=== PATIENT | male | born 1935 | race Caucasian/White ===

== ENCOUNTER 2016-11-01 23:49 | Emergency (ER) | payer MEDICARE, OTHER ==
[~2016-11-01] VITALS: Ht 167.6 cm; Wt 76.0 kg
[~2016-11-01 23:49] MED LIST: ALPR0.5T PO; AMLO5TAB4 PO; ASPI-664 PO; DOCU-159 PO; LEVE-5 PO; LEVO88TA3 PO; LOSA100T7 PO; OMEP20CA16 PO; RANI150T5 PO; RANI150T9 PO
[2016-11-01 23:51] VITALS: Ht 167.6 cm; Wt 76.0 kg
[2016-11-01] MEDS ORDERED: SOD CHLORIDE 0.9% 500 ML IV STA (23:54)
[2016-11-02 00:22] LABS: ADD SCAN DIFF NO
[2016-11-02 00:27] LABS: BASOPHILS % 0.4 % (0.0-2.0); EOSINOPHILS # 0.3 10^3/ul (0.0-0.5); EOSINOPHILS % 2.8 % (0.0-7.0); HEMATOCRIT 45.3 % (42.0-52.0); HEMOGLOBIN 15.2 g/dl (14.0-18.0); LYMPHOCYTES # 1.3 10^3/ul (0.8-2.9); LYMPHOCYTES % 12.1 % (15.0-51.0); MEAN CORPUSCULAR HGB CONC 33.6 g/dl (32.0-37.0); MEAN CORPUSCULAR VOLUME 92.4 fl (82.0-101.0); MEAN PLATELET VOLUME 9.6 fl (7.4-10.4); MONOCYTE # 0.9 10^3/ul (0.3-0.9); MONOCYTES % 8.9 % (0.0-11.0); NEUTROPHIL # 7.8 10^3/ul (1.6-7.5); NEUTROPHILS % 75.5 % (39.0-77.0); PLATELET COUNT 227 10^3/UL (140-415); RED CELL DISTRIBUTION WIDTH 13.7 % (11.5-14.5); WHITE BLOOD COUNT 10.4 10^3/ul (4.8-10.8)
[2016-11-02 00:36] LABS: INR 0.97; PROTIME 12.9 Sec (12.2-14.2)
[2016-11-02 00:37] LABS: PARTIAL THROMBOPLASTIN TIME 28.6 Sec (25.0-35.0)
--- NOTE | 2016-11-02 00:37 | RADRPT ---
PROCEDURE: CT BRAIN WITHOUT CONTRAST CLINICAL INDICATION: 81-year-old male with headaches. TECHNIQUE: The study was performed utilizing GE Light[employer]STRAN VCT 64-slice CT scanner. Direct axial sections were obtained from the foramen magnum to the vertex without the use of intravenous contrast material. Sagittal and coronal reformations were obtained. Automated exposure control and iterativ e reconstruction techniques were utilized for this examination. The images were viewed on a PACS [place]. CTD/vol = 39.4 mGy; Total Exam DLP = 634.2 mGy-cm. COMPARISON: None. FINDINGS: There is moderate degree of diffuse cortical and central atrophy with compensatory ventricular enlar gement. There is no evidence for mass effect or midline shift. There are periventricular areas of decreased density consistent with microangiopathic ischemic changes. 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 There is no evidence for acute intra or extra-axial blood. Calcifi cations are seen within the intracranial carotid arteries bilaterally. The bony calvarium is intact. There is kzyp-gh-pkqazkrt mucosal thickening within the ethmoid air cells bilaterally. The mastoid air cells are without significant soft tissue. There is mild calcification within the ear cartilag e bilaterally. IMPRESSION: 1. Moderate diffuse atrophy. 2. Microangiopathic ischemic changes. 3. Multiple punctate extra-axial ovoid dense radiopaque foci within the inferior aspects of the primitivo ateral middle cranial and posterior fossa subarachnoid spaces. These are most suggestive of Pantopaq ue from a prior myelogram. Prior studies are not available to assess interval change. Clinical pierre elation is necessary. 4. Vascular calcifications. 5. Ugqf-py-sjocragp mucosal thickening ethmoid air cells bilaterally. .Everardo Simon MD, MD Date Time Electronically viewed and signed by .Everardo Simon MD, MD on 11/02/2016 00:37 .Damián/
[2016-11-02 00:40] LABS: CHLORIDE 103 mmol/L (97-110); SODIUM 142 mmol/L (135-144)
[2016-11-02 00:43] LABS: CREATININE 1.03 mg/dl (0.61-1.24)
--- NOTE | 2016-11-02 00:43 | RADRPT ---
PROCEDURE: XR Chest. CLINICAL INDICATION: Headache TECHNIQUE: AP Portable chest. COMPARISON: 09/05/2016 FINDINGS: The cardiomediastinal silhouette is normal. The lungs are clear. The osseous structures are unrema rkable. IMPRESSION: No acute findings. RPTAT: HIKT .Mk Amaro MD, Date Time Electronically viewed and signed by .Mk Amaro MD, on 11/02/2016 00:43 .T/
[2016-11-02 00:44] LABS: ANION GAP 15 (8-16); BLOOD UREA NITROGEN 16 mg/dl (7-20); CARBON DIOXIDE 28 mmol/L (21-31); GLUCOSE 115 mg/dl (70-220)
[2016-11-02 00:58] LABS: TROPONIN-I < 0.012 ng/ml (0.00-0.12)
--- NOTE | 2016-11-02 02:14 | ERD ---
ER Documentation Chief Complaint Date/Time DATE: 11/02/16 TIME: 02:13 Chief Complaint dry cough since last night; chronic dizziness HPI This is a 81-year-old male complains of dry cough since last night. He said he has has chronic dizziness. Denies any other current complaints. Denies any nausea vomiting fevers or chills. Denies any current issues. Cough has been nonproductive. No fevers or chills. No chest pain or shortness of breath. ROS All systems reviewed and are negative except as per history of present illness. Medications Home Meds Active Scripts Levetiracetam* (Keppra*) 500 Mg Tablet, 500 MG PO DAILY, #7 TAB Prov:LIYAH MORENO MD 08/23/16 Ranitidine Hcl* (Zantac*) 150 Mg Tablet, 150 MG PO BID Y for EPIGASTRIC PAIN, # 30 TAB Prov:TIERA ALFARO DO 08/11/16 Reported Medications Ranitidine Hcl* (Ranitidine Hcl*) 150 Mg Tablet, 150 MG PO DAILY, #30 TAB 08/11/16 Alprazolam* (Xanax*) 0.5 Mg Tab, 0.5 MG PO TID Y for ANXIETY, TAB 08/11/16 Amlodipine Besylate* (Norvasc*) 5 Mg Tablet, 5 MG PO BID, TAB 03/05/16 Aspirin* (Aspirin* EC) 81 Mg Tablet.dr, 81 MG PO DAILY, TAB 03/05/16 Omeprazole* (Omeprazole*) 20 Mg Capsule.dr, 20 MG PO BID, #60 CAP 03/05/16 Docusate Sodium* (Docusate Sodium*) 100 Mg Capsule, 100 MG PO BID, #60 CAP 01/23/16 Losartan Potassium* (Losartan Potassium*) 100 Mg Tablet, 100 MG PO DAILY, TAB 09/12/15 Levothyroxine Sodium* (Levothyroxine Sodium*) 88 Mcg Tablet, 88 MCG PO AC BREAKFAST, TAB 05/02/15 Allergies Allergies: Coded Allergies: No Known Allergies (Verified Allergy, Mild, 08/11/16) PMhx/Soc History of Surgery: Yes (multiple stents placed, thyroidectomy, spinal surgery) Anesthesia Reaction: No Hx Neurological Disorder: Yes (dizziness) Hx Respiratory Disorders: Yes (ASTHMA ) Hx Cardiac Disorders: Yes (HTN, HIGH CHOLESTEROL ) Hx Psychiatric Problems: No Hx Miscellaneous Medical Probl: Yes (LYMPHOMA ANXIETY, hypothyroidism) Hx Alcohol Use: No Hx Substance Use: No Hx Tobacco Use: Yes (quit 10 years ago) Smoking Status: Former smoker Physical Exam Vitals Vital Signs Date Time Temp Pulse Resp B/P Pulse Ox O2 Delivery O2 Flow Rate FiO2 11/01/16 23:51 97.7 78 14 133/83 97 Physical Exam Const: [] Head: Atraumatic Eyes: Normal Conjunctiva ENT: Normal External Ears, Nose and Mouth. Neck: Full range of motion..~ No meningismus. Resp: Clear to auscultation bilaterally Cardio: Regular rate and rhythm, no murmurs Abd: Soft, non tender, non distended. Normal bowel sounds Skin: No petechiae or rashes Back: No midline or flank tenderness Ext: No cyanosis, or edema Neur: Awake and alert Psych: Normal Mood and Affect Result Diagram: 11/02/16 0010 11/02/16 0010 Results 24 hrs Laboratory Tests Test 11/02/16 00:10 Activated Partial Thromboplast Time 28.6Sec Anion Gap 15 Basophils # 0.010^3/ul Basophils % 0.4% Blood Urea Nitrogen 16mg/dl Calcium Level 9.0mg/dl Carbon Dioxide Level 28mmol/L Chloride Level 103mmol/L Creatinine 1.03mg/dl Eosinophils # 0.310^3/ul Eosinophils % 2.8% Glucose Level 115mg/dl Hematocrit 45.3% Hemoglobin 15.2g/dl INR International Normalized Ratio 0.97 Lymphocytes # 1.310^3/ul Lymphocytes % 12.1% Mean Corpuscular Hemoglobin 31.0pg Mean Corpuscular Hemoglobin Concent 33.6g/dl Mean Corpuscular Volume 92.4fl Mean Platelet Volume 9.6fl Monocytes # 0.910^3/ul Monocytes % 8.9% Neutrophils # 7.810^3/ul Neutrophils % 75.5% Nucleated Red Blood Cells # 0.010^3/ul Nucleated Red Blood Cells % 0.0/100WBC Platelet Count 33244^3/UL Potassium Level 4.0mmol/L Prothrombin Time 12.9Sec Prothrombin Time Ratio 1.0 Red Blood Count 4.9010^6/ul Red Cell Distribution Width 13.7% Sodium Level 142mmol/L Troponin I < 0.012ng/ml White Blood Count 10.410^3/ul Current Medications Medications (Trade) Dose Ordered Sig/Belle Route PRN Reason Start Time Stop Time Status Last Admin Dose Admin Sodium Chloride (NS) 500 ml @ 500 mls/hr Q1H STAT IV 11/01/16 23:54 11/02/16 00:53 DC 11/02/16 01:05 Procedures/MDM EKG: Rate/Rhythm: Normal Sinus Rhythm QRS, ST, T-waves: No changes consistent w/ acute ischemia Impression: No evidence of ischemia or arrhythmia Chest X-ray 1V Interpreted by me: Soft Tissue: No acute abnormalities Bones: No acute abnormalities Mediastinum/Cardiac Silhouette/Lungs: No acute abnormalities Patient's respiratory status has stabilized while in the department and is appropriate for outpatient work up. Exam and work up not consistent w/ impending respiratory failure or cardiovascular collapse. Departure Diagnosis: Primary Impression: Cough Condition: Stable GEOVANY MCCRACKEN Nov 02, 2016 02:14
[2016-11-02] MEDS ORDERED: MECL-77 PO (02:16)
[2016-11-02] MEDS ORDERED: BENZ100C70 PO (02:35)
[2016-11-02 02:52] VITALS: BP 129/72; PULSE 68; RESP 16; TEMP 98.6
== END 2016-11-02 03:01 | disposition home or self-care (01) ==
LOC: E/R 23:49
DX: R05 Cough (principal); J45.909 Unspecified asthma, uncomplicated; I10 Essential (primary) hypertension; E03.9 Hypothyroidism, unspecified; R40.2142 Coma scale, eyes open, spontaneous, at arrival to emergency department; R40.2252 Coma scale, best verbal response, oriented, at arrival to emergency department; R40.2362 Coma scale, best motor response, obeys commands, at arrival to emergency department; Z98.61 Coronary angioplasty status; Z87.891 Personal history of nicotine dependence; Z79.82 Long term (current) use of aspirin
CPT/HCPCS: 36415; 70450; 71010; 80048; 84484; 85025; 85610; 85730; 99285; J7040

== ENCOUNTER 2016-11-07 00:33 | Emergency (ER) | payer MEDICARE, OTHER ==
[~2016-11-07] VITALS: Ht 167.6 cm; Wt 78.5 kg
[~2016-11-07 00:33] MED LIST changes: +BENZ100C70 PO; +MECL-77 PO
[2016-11-07 00:54] VITALS: Ht 167.6 cm; Wt 78.5 kg
== END 2016-11-07 02:54 | disposition left against medical advice (07) ==
LOC: E/R 00:33
DX: Z53.21 Procedure and treatment not carried out due to patient leaving prior to being seen by health care provider (principal)

== ENCOUNTER 2016-11-25 04:59 | Emergency (ER) | payer MEDICARE ==
[~2016-11-25] VITALS: Ht 170.2 cm; Wt 63.6 kg
[2016-11-25 05:01] VITALS: Ht 170.2 cm; Wt 63.6 kg
--- NOTE | 2016-11-25 05:45 | ERD ---
ER Documentation Chief Complaint Date/Time DATE: 11/25/16 TIME: 05:43 Chief Complaint c/o his b/p being elevated. anxiety HPI This is a 81-year-old male complains of blood pressure being elevated. Patient is a very anxious. Denies any fevers or chills. Denies any nausea vomiting. Denies any other current complaints. No chest pain. No other current problems ROS All systems reviewed and are negative except as per history of present illness. Medications Home Meds Active Scripts Benzonatate* (Tessalon Perle*) 100 Mg Capsule, 100 MG PO Q8H Y for COUGH, #20 CAP Prov:RICKEYGENETGEOVANY S. 11/02/16 Meclizine Hcl* (Meclizine Hcl*) 25 Mg Tablet, 25 MG PO Q8H Y for DIZZINESS, #14 TAB Prov:RICKEYGENETGEOVANY S. 11/02/16 Levetiracetam* (Keppra*) 500 Mg Tablet, 500 MG PO DAILY, #7 TAB Prov:LIYAH MORENO MD 08/23/16 Ranitidine Hcl* (Zantac*) 150 Mg Tablet, 150 MG PO BID Y for EPIGASTRIC PAIN, # 30 TAB Prov:TIERA ALFARO DO 08/11/16 Reported Medications Ranitidine Hcl* (Ranitidine Hcl*) 150 Mg Tablet, 150 MG PO DAILY, #30 TAB 08/11/16 Alprazolam* (Xanax*) 0.5 Mg Tab, 0.5 MG PO TID Y for ANXIETY, TAB 08/11/16 Amlodipine Besylate* (Norvasc*) 5 Mg Tablet, 5 MG PO BID, TAB 03/05/16 Aspirin* (Aspirin* EC) 81 Mg Tablet.dr, 81 MG PO DAILY, TAB 03/05/16 Omeprazole* (Omeprazole*) 20 Mg Capsule.dr, 20 MG PO BID, #60 CAP 03/05/16 Docusate Sodium* (Docusate Sodium*) 100 Mg Capsule, 100 MG PO BID, #60 CAP 01/23/16 Losartan Potassium* (Losartan Potassium*) 100 Mg Tablet, 100 MG PO DAILY, TAB 09/12/15 Levothyroxine Sodium* (Levothyroxine Sodium*) 88 Mcg Tablet, 88 MCG PO AC BREAKFAST, TAB 05/02/15 Allergies Allergies: Coded Allergies: No Known Allergies (Verified Allergy, Mild, 08/11/16) PMhx/Soc History of Surgery: Yes (multiple stents placed, thyroidectomy, spinal surgery) Anesthesia Reaction: No Hx Neurological Disorder: Yes (dizziness, concussion x 5 ) Hx Respiratory Disorders: Yes (ASTHMA ) Hx Cardiac Disorders: Yes (HTN, HIGH CHOLESTEROL ) Hx Psychiatric Problems: No Hx Miscellaneous Medical Probl: Yes (LYMPHOMA ANXIETY, hypothyroidism) Hx Alcohol Use: No Hx Substance Use: No Hx Tobacco Use: Yes (quit 10 years ago) Smoking Status: Former smoker Physical Exam Vitals Vital Signs Date Time Temp Pulse Resp B/P Pulse Ox O2 Delivery O2 Flow Rate FiO2 11/25/16 05:01 97.7 64 18 155/70 98 Physical Exam Const: [] Head: Atraumatic Eyes: Normal Conjunctiva ENT: Normal External Ears, Nose and Mouth. Neck: Full range of motion..~ No meningismus. Resp: Clear to auscultation bilaterally Cardio: Regular rate and rhythm, no murmurs Abd: Soft, non tender, non distended. Normal bowel sounds Skin: No petechiae or rashes Back: No midline or flank tenderness Ext: No cyanosis, or edema Neur: Awake and alert Psych: Normal Mood and Affect Procedures/MDM EKG: Rate/Rhythm: [Normal Sinus Rhythm] QRS, ST, T-waves: [No changes consistent w/ acute ischemia] Impression: [No evidence of ischemia or arrhythmia] Patient's blood pressure was elevated (>120/80) but appears stable without evidence of hypertension emergency or urgency. The patient was counseled about the risks of hypertension and urged to pursue outpatient monitoring and therapy within a week with their primary care physician. Symptomology symptoms consistent with anxiety. At this point patient stable for outpatient management. Responded well to Ativan. Will be discharged home with a course of Ativan Departure Diagnosis: Primary Impression: Anxiety Condition: Stable GEOVANY MCCRACKEN Nov 25, 2016 05:44
[2016-11-25] MEDS ORDERED: LORA1TAB PO (05:49)
[2016-11-25] MEDS ORDERED: LORAZEPAM 1 MG TAB PO ONE (06:00)
[2016-11-25 06:46] VITALS: BP 138/80; PULSE 88; RESP 16; TEMP 98.6
== END 2016-11-25 06:46 | disposition home or self-care (01) ==
LOC: E/R 04:59
DX: F41.9 Anxiety disorder, unspecified (principal); J45.909 Unspecified asthma, uncomplicated; I10 Essential (primary) hypertension; E03.9 Hypothyroidism, unspecified; R40.2142 Coma scale, eyes open, spontaneous, at arrival to emergency department; R40.2252 Coma scale, best verbal response, oriented, at arrival to emergency department; R40.2362 Coma scale, best motor response, obeys commands, at arrival to emergency department; Z85.72 Personal history of non-Hodgkin lymphomas; Z87.891 Personal history of nicotine dependence; Z79.82 Long term (current) use of aspirin
CPT/HCPCS: 36415; 93005

== ENCOUNTER 2016-11-28 19:18 | Emergency (ER) | payer MEDICARE ==
[~2016-11-28] VITALS: Ht 167.6 cm; Wt 76.0 kg
[~2016-11-28 19:18] MED LIST changes: +LORA1TAB PO
[2016-11-28 19:22] VITALS: Ht 167.6 cm; Wt 76.0 kg
[2016-11-28] MEDS ORDERED: DOCU-159 PO (19:52)
[2016-11-28] MEDS ORDERED: OMEP20CA16 PO (19:54)
[2016-11-28 20:14] LABS: ADD SCAN DIFF NO
[2016-11-28 20:16] LABS: BASOPHIL # 0.1 10^3/ul (0.0-0.1); BASOPHILS % 0.6 % (0.0-2.0); EOSINOPHILS % 0.5 % (0.0-7.0); HEMATOCRIT 42.1 % (42.0-52.0); HEMOGLOBIN 14.5 g/dl (14.0-18.0); LYMPHOCYTES # 1.7 10^3/ul (0.8-2.9); MEAN CORPUSCULAR HEMOGLOBIN 31.5 pg (29.0-33.0); MEAN CORPUSCULAR HGB CONC 34.4 g/dl (32.0-37.0); MEAN CORPUSCULAR VOLUME 91.3 fl (82.0-101.0); MEAN PLATELET VOLUME 10.2 fl (7.4-10.4); MONOCYTE # 0.7 10^3/ul (0.3-0.9); MONOCYTES % 7.9 % (0.0-11.0); NEUTROPHIL # 6.3 10^3/ul (1.6-7.5); NEUTROPHILS % 71.8 % (39.0-77.0); PLATELET COUNT 251 10^3/UL (140-415); RED BLOOD COUNT 4.61 10^6/ul (4.70-6.10); RED CELL DISTRIBUTION WIDTH 13.8 % (11.5-14.5); WHITE BLOOD COUNT 8.7 10^3/ul (4.8-10.8)
[2016-11-28 20:25] LABS: CHLORIDE 100 mmol/L (97-110)
[2016-11-28 20:26] LABS: POTASSIUM 4.2 mmol/L (3.5-5.1); SODIUM 139 mmol/L (135-144)
[2016-11-28 20:28] LABS: CREATININE 0.91 mg/dl (0.61-1.24); INR 1.06; PROTIME 13.8 Sec (12.2-14.2); PT RATIO 1.1
[2016-11-28 20:29] LABS: ANION GAP 14 (8-16); BLOOD UREA NITROGEN 17 mg/dl (7-20); CALCIUM 9.3 mg/dl (8.4-10.2); CARBON DIOXIDE 29 mmol/L (21-31); GLUCOSE 111 mg/dl (70-220)
[2016-11-28 20:44] LABS: TROPONIN-I < 0.012 ng/ml (0.00-0.12)
[2016-11-28 20:55] LABS: PARTIAL THROMBOPLASTIN TIME 28.7 Sec (25.0-35.0)
[2016-11-28 21:01] VITALS: BP 146/67; PULSE 57; RESP 18
--- NOTE | 2016-11-28 21:01 | RADRPT ---
PROCEDURE: XR Chest. CLINICAL INDICATION: Chest pain. TECHNIQUE: Portable AP upright view of the chest was obtained. COMPARISON: 11/02/2016 FINDINGS: The cardiomediastinal silhouette is within normal limits. The lungs are clear. There is no evidenc e for pleural effusion, pneumothorax or pulmonary vascular congestion. The osseous structures are i ntact with no evidence for acute abnormality. RPTAT:HJJR IMPRESSION: No evidence for acute intrathoracic pathology or change from 11/02/2016. Physician Aarti Date Time Electronically viewed and signed by Jerel Webster Physician on 11/28/2016 21:00 /
--- NOTE | 2016-11-28 21:26 | ERD ---
ER Documentation Chief Complaint Date/Time DATE: 11/28/16 TIME: 21:24 Chief Complaint dizziness, states unsure if he took wrong medication for htn, abd pain HPI This 81-year-old male presents to the emergency room for evaluation of lightheadedness. The patient states that he is unsure if he took some medication for high blood pressure. The patient states that he is not having any chest pain or palpitations or nausea or vomiting. The patient does state that he is taking hydrochlorothiazide. No aggravating or relieving factors for her symptoms. ROS All systems reviewed and are negative except as per history of present illness. Medications Home Meds Reported Medications Omeprazole* (Omeprazole*) 20 Mg Capsule.dr, 20 MG PO DAILY, #30 CAP 11/28/16 Docusate Sodium* (Docusate Sodium*) 100 Mg Capsule, 200 MG PO DAILY, #30 CAP 11/28/16 Alprazolam* (Xanax*) 0.5 Mg Tab, 0.5 MG PO TID Y for ANXIETY, TAB 08/11/16 Amlodipine Besylate* (Norvasc*) 5 Mg Tablet, 5 MG PO BID, TAB 03/05/16 Aspirin* (Aspirin* EC) 81 Mg Tablet.dr, 81 MG PO DAILY, TAB 03/05/16 Losartan Potassium* (Losartan Potassium*) 100 Mg Tablet, 100 MG PO DAILY, TAB 09/12/15 Levothyroxine Sodium* (Levothyroxine Sodium*) 88 Mcg Tablet, 88 MCG PO AC BREAKFAST, TAB 05/02/15 Discontinued Reported Medications Ranitidine Hcl* (Ranitidine Hcl*) 150 Mg Tablet, 150 MG PO DAILY, #30 TAB 08/11/16 Omeprazole* (Omeprazole*) 20 Mg Capsule.dr, 20 MG PO BID, #60 CAP 03/05/16 Docusate Sodium* (Docusate Sodium*) 100 Mg Capsule, 100 MG PO BID, #60 CAP 01/23/16 Discontinued Scripts Lorazepam* (Lorazepam*) 1 Mg Tablet, 1 MG PO Q8H Y for ANXIETY, #10 TAB Prov:GEOVANY MCCRACKEN 11/25/16 Benzonatate* (Tessalon Perle*) 100 Mg Capsule, 100 MG PO Q8H Y for COUGH, #20 CAP Prov:GEOVANY MCCRACKEN 11/02/16 Meclizine Hcl* (Meclizine Hcl*) 25 Mg Tablet, 25 MG PO Q8H Y for DIZZINESS, #14 TAB Prov:DARSHANA MCCRACKENEL Corine 11/02/16 Levetiracetam* (Keppra*) 500 Mg Tablet, 500 MG PO DAILY, #7 TAB Prov:LIYAH MORENO MD 08/23/16 Ranitidine Hcl* (Zantac*) 150 Mg Tablet, 150 MG PO BID Y for EPIGASTRIC PAIN, # 30 TAB Prov:TIERA ALFARO DO 08/11/16 Allergies Allergies: Coded Allergies: No Known Allergies (Verified Allergy, Mild, 11/28/16) PMhx/Soc History of Surgery: Yes (multiple stents placed, thyroidectomy, spinal surgery) Anesthesia Reaction: No Hx Neurological Disorder: Yes (dizziness, concussion x 5 ) Hx Respiratory Disorders: Yes (ASTHMA ) Hx Cardiac Disorders: Yes (HTN, HIGH CHOLESTEROL ) Hx Psychiatric Problems: No Hx Miscellaneous Medical Probl: Yes (LYMPHOMA ANXIETY, hypothyroidism) Hx Alcohol Use: No Hx Substance Use: No Hx Tobacco Use: Yes (quit 10 years ago) Smoking Status: Former smoker Physical Exam Vitals Vital Signs Date Time Temp Pulse Resp B/P Pulse Ox O2 Delivery O2 Flow Rate FiO2 11/28/16 21:01 57 18 146/67 100 Nasal Cannula 2.0 11/28/16 21:00 Nasal Cannula 2 11/28/16 19:22 97.7 90 20 188/90 Physical Exam INITIAL VITAL SIGNS: Reviewed by me GENERAL: The patient is well developed and appropriate for usual state of health in no apparent distress HEENT: Pupils equal, round, and reactive to light. EOMI. There is no scleral icterus. NECK: C-spine is soft and supple, there is no meningismus. There is no cervical lymphadenopathy. LUNGS: Clear to auscultation bilaterally. There are no rales, wheezes or rhonchi. HEART: Regular rate and rhythm, no murmurs, clicks, rubs or gallops. ABDOMEN: Soft, non-tender, non-distended. There are bowel sounds in all four quadrants. No rebound or guarding. EXTREMITIES: There is no peripheral cyanosis or edema. No focal swelling or erythema. NEUROLOGICAL: The patient moves all four extremities with 5/5 strength. Cranial nerves II - XII are intact. Normal gait. Alert and oriented SKIN: There is no apparent rash or petechiae. HEME/LYMPHATIC: There is no evidence of excessive bruising or lymphedema. PSYCHIATRIC: The patient does not appear anxious or depressed. Result Diagram: 11/28/16195411/28/161954 Results 24 hrs Laboratory Tests Test 11/28/16 19:55 White Blood Count 8.710^3/ul Red Blood Count 4.6110^6/ul Hemoglobin 14.5g/dl Hematocrit 42.1% Mean Corpuscular Volume 91.3fl Mean Corpuscular Hemoglobin 31.5pg Mean Corpuscular Hemoglobin Concent 34.4g/dl Red Cell Distribution Width 13.8% Platelet Count 83753^3/UL Mean Platelet Volume 10.2fl Neutrophils % 71.8% Lymphocytes % 19.0% Monocytes % 7.9% Eosinophils % 0.5% Basophils % 0.6% Nucleated Red Blood Cells % 0.0/100WBC Neutrophils # 6.310^3/ul Lymphocytes # 1.710^3/ul Monocytes # 0.710^3/ul Eosinophils # 0.010^3/ul Basophils # 0.110^3/ul Nucleated Red Blood Cells # 0.010^3/ul Prothrombin Time 13.8Sec Prothrombin Time Ratio 1.1 INR International Normalized Ratio 1.06 Activated Partial Thromboplast Time 28.7Sec Sodium Level 139mmol/L Potassium Level 4.2mmol/L Chloride Level 100mmol/L Carbon Dioxide Level 29mmol/L Anion Gap 14 Blood Urea Nitrogen 17mg/dl Creatinine 0.91mg/dl Glucose Level 111mg/dl Calcium Level 9.3mg/dl Troponin I < 0.012ng/ml Procedures/[facility] EKG: Rate/Rhythm: [Normal Sinus Rhythm] QRS, ST, T-waves: [No changes consistent w/ acute ischemia] Impression: [No evidence of ischemia or arrhythmia] Chest X-ray 1V Interpreted by me: Soft Tissue: No acute abnormalities Bones: No acute abnormalities Mediastinum/Cardiac Silhouette/Lungs: [No acute abnormalities] This 81-year-old male presents to the ER for evaluation of dizziness. When I evaluated this patient he stated that he thinks he took an extra hydrochlorothiazide. His blood pressure was stable. Lab work was obtained including an EKG which is nonischemic. Chest x-ray is within normal limits. Troponin is normal. When I reevaluated him to update him about his lab results the patient stated he is feeling much better. His blood pressure is 1 54 over 87. The patient will be discharged home at this time with instructions to return to the ER if his symptoms worsen. I advised him to be more careful in taking his medications, he clearly has his medications marked in a bag which is with him. The patient states that he is comfortable with discharge at this time. Departure Diagnosis: Primary Impression: Dizziness Condition: Stable TAJ RAO DO Nov 28, 2016 21:26
== END 2016-11-28 21:38 | disposition home or self-care (01) ==
LOC: E/R 19:18
DX: R42 Dizziness and giddiness (principal); J45.909 Unspecified asthma, uncomplicated; I10 Essential (primary) hypertension; E03.9 Hypothyroidism, unspecified; R07.9 Chest pain, unspecified; Z87.891 Personal history of nicotine dependence; Z79.82 Long term (current) use of aspirin
CPT/HCPCS: 36415; 71010; 80048; 84484; 85025; 85610; 85730; 93005

== ENCOUNTER 2017-01-08 22:44 | Emergency (ER) | payer MEDICARE ==
[~2017-01-08] VITALS: Ht 170.2 cm; Wt 74.5 kg
[~2017-01-08 22:44] MED LIST changes: -BENZ100C70 PO; -LEVE-5 PO; -LORA1TAB PO; -MECL-77 PO; -RANI150T5 PO; -RANI150T9 PO
[2017-01-08 23:41] VITALS: Ht 170.2 cm; Wt 74.5 kg
[2017-01-09 00:41] LABS: ADD SCAN DIFF NO
[2017-01-09 00:43] LABS: BASOPHILS % 0.5 % (0.0-2.0); EOSINOPHILS # 0.1 10^3/ul (0.0-0.5); EOSINOPHILS % 1.1 % (0.0-7.0); HEMATOCRIT 42.8 % (42.0-52.0); HEMOGLOBIN 14.5 g/dl (14.0-18.0); LYMPHOCYTES # 1.6 10^3/ul (0.8-2.9); LYMPHOCYTES % 20.2 % (15.0-51.0); MEAN CORPUSCULAR HEMOGLOBIN 31.3 pg (29.0-33.0); MEAN CORPUSCULAR HGB CONC 33.9 g/dl (32.0-37.0); MEAN CORPUSCULAR VOLUME 92.2 fl (82.0-101.0); MEAN PLATELET VOLUME 9.8 fl (7.4-10.4); MONOCYTE # 0.8 10^3/ul (0.3-0.9); MONOCYTES % 9.5 % (0.0-11.0); NEUTROPHIL # 5.4 10^3/ul (1.6-7.5); NEUTROPHILS % 68.4 % (39.0-77.0); PLATELET COUNT 308 10^3/UL (140-415); RED BLOOD COUNT 4.64 10^6/ul (4.70-6.10); RED CELL DISTRIBUTION WIDTH 14.3 % (11.5-14.5); WHITE BLOOD COUNT 7.9 10^3/ul (4.8-10.8)
--- NOTE | 2017-01-09 00:59 | RADRPT ---
PROCEDURE: XR Chest. CLINICAL INDICATION: Chest pain. TECHNIQUE: Single frontal chest x-ray. COMPARISON: 11/28/2016 FINDINGS: The cardiomediastinal silhouette is unremarkable. There is no congestive heart failure.. No focal i nfiltrate is seen. There is no pleural effusion. There is no pneumothorax. The osseous structures are unremarkable. IMPRESSION: 1. No active disease. RPTAT: HMVK .Leon Sepulveda MD, MD Date Time Electronically viewed and signed by .Leon Sepulveda MD, on 01/09/2017 00:59 .K/
[2017-01-09 01:02] LABS: ANION GAP 11 (8-16); BLOOD UREA NITROGEN 16 mg/dl (7-20); CALCIUM 9.2 mg/dl (8.4-10.2); CARBON DIOXIDE 29 mmol/L (21-31); CHLORIDE 101 mmol/L (97-110); CREATININE 0.84 mg/dl (0.61-1.24); GLUCOSE 107 mg/dl (70-220); INR 0.99; POTASSIUM 3.9 mmol/L (3.5-5.1); PROTIME 13.1 Sec (12.2-14.2); SODIUM 137 mmol/L (135-144)
[2017-01-09 01:03] LABS: PARTIAL THROMBOPLASTIN TIME 28.4 Sec (25.0-35.0)
[2017-01-09 01:16] LABS: TROPONIN-I < 0.012 ng/ml (0.00-0.12)
--- NOTE | 2017-01-09 01:54 | ERD ---
ER Documentation Chief Complaint Date/Time DATE: 01/09/17 TIME: 01:52 Chief Complaint dizziness,rt side abd pain radiating towards right chest HPI This is a 81-year-old male presents to the emergency room for dizziness. The patient states that he also had elevations in his blood pressure and he is checking his blood pressure with a blood pressure cuff at home. The patient states that he thinks he passed out but is not sure. He came to the emergency room for evaluation. He denies any chest pain or shortness of breath at this time ROS All systems reviewed and are negative except as per history of present illness. Medications Home Meds Reported Medications Omeprazole* (Omeprazole*) 20 Mg Capsule.dr, 20 MG PO DAILY, #30 CAP 11/28/16 Docusate Sodium* (Docusate Sodium*) 100 Mg Capsule, 200 MG PO DAILY, #30 CAP 11/28/16 Alprazolam* (Xanax*) 0.5 Mg Tab, 0.5 MG PO TID Y for ANXIETY, TAB 08/11/16 Amlodipine Besylate* (Norvasc*) 5 Mg Tablet, 5 MG PO BID, TAB 03/05/16 Aspirin* (Aspirin* EC) 81 Mg Tablet.dr, 81 MG PO DAILY, TAB 03/05/16 Losartan Potassium* (Losartan Potassium*) 100 Mg Tablet, 100 MG PO DAILY, TAB 09/12/15 Levothyroxine Sodium* (Levothyroxine Sodium*) 88 Mcg Tablet, 88 MCG PO AC BREAKFAST, TAB 05/02/15 Allergies Allergies: Coded Allergies: No Known Allergies (Verified Allergy, Mild, 11/28/16) PMhx/Soc History of Surgery: Yes (multiple stents placed, thyroidectomy, spinal surgery) Anesthesia Reaction: No Hx Neurological Disorder: Yes (dizziness, concussion x 5 ) Hx Respiratory Disorders: Yes (ASTHMA ) Hx Cardiac Disorders: Yes (HTN, HIGH CHOLESTEROL ) Hx Psychiatric Problems: No Hx Miscellaneous Medical Probl: Yes (LYMPHOMA ANXIETY, hypothyroidism) Hx Alcohol Use: No Hx Substance Use: No Hx Tobacco Use: Yes (quit 10 years ago) Smoking Status: Never smoker Physical Exam Vitals Vital Signs Date Time Temp Pulse Resp B/P Pulse Ox O2 Delivery O2 Flow Rate FiO2 01/08/17 23:41 97.2 66 18 141/84 96 Physical Exam INITIAL VITAL SIGNS: Reviewed by me GENERAL: The patient is well developed and appropriate for usual state of health in no apparent distress HEENT: Pupils equal, round, and reactive to light. EOMI. There is no scleral icterus. NECK: C-spine is soft and supple, there is no meningismus. There is no cervical lymphadenopathy. LUNGS: Clear to auscultation bilaterally. There are no rales, wheezes or rhonchi. HEART: Regular rate and rhythm, no murmurs, clicks, rubs or gallops. ABDOMEN: Soft, non-tender, non-distended. There are bowel sounds in all four quadrants. No rebound or guarding. EXTREMITIES: There is no peripheral cyanosis or edema. No focal swelling or erythema. NEUROLOGICAL: The patient moves all four extremities with 5/5 strength. Cranial nerves II - XII are intact. Normal gait. Alert and oriented SKIN: There is no apparent rash or petechiae. HEME/LYMPHATIC: There is no evidence of excessive bruising or lymphedema. PSYCHIATRIC: The patient does not appear anxious or depressed. Result Diagram: 01/09/17 0017 01/09/17 0017 Results 24 hrs Laboratory Tests Test 01/09/17 00:17 White Blood Count 7.910^3/ul Red Blood Count 4.6410^6/ul Hemoglobin 14.5g/dl Hematocrit 42.8% Mean Corpuscular Volume 92.2fl Mean Corpuscular Hemoglobin 31.3pg Mean Corpuscular Hemoglobin Concent 33.9g/dl Red Cell Distribution Width 14.3% Platelet Count 93971^3/UL Mean Platelet Volume 9.8fl Neutrophils % 68.4% Lymphocytes % 20.2% Monocytes % 9.5% Eosinophils % 1.1% Basophils % 0.5% Nucleated Red Blood Cells % 0.0/100WBC Neutrophils # 5.410^3/ul Lymphocytes # 1.610^3/ul Monocytes # 0.810^3/ul Eosinophils # 0.110^3/ul Basophils # 0.010^3/ul Nucleated Red Blood Cells # 0.010^3/ul Prothrombin Time 13.1Sec Prothrombin Time Ratio 1.0 INR International Normalized Ratio 0.99 Activated Partial Thromboplast Time 28.4Sec Sodium Level 137mmol/L Potassium Level 3.9mmol/L Chloride Level 101mmol/L Carbon Dioxide Level 29mmol/L Anion Gap 11 Blood Urea Nitrogen 16mg/dl Creatinine 0.84mg/dl Glucose Level 107mg/dl Calcium Level 9.2mg/dl Troponin I < 0.012ng/ml Procedures/MDM EKG: Rate/Rhythm: [Normal Sinus Rhythm] QRS, ST, T-waves: [No changes consistent w/ acute ischemia] Impression: [No evidence of ischemia or arrhythmia] Chest X-ray 1V Interpreted by me: Soft Tissue: No acute abnormalities Bones: No acute abnormalities Mediastinum/Cardiac Silhouette/Lungs: [No acute abnormalities] This 81-year-old male presents to the emergency room for evaluation of dizziness , and a possible syncopal episode. This patient is not getting a detailed history and it is uncertain of whether this patient lost consciousness or not at all. 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 Lab work was obtained in the emergency room. This patient is hemodynamically stable, negative troponin, normal sinus rhythm on EKG. Chest x-ray is also clear. Pulmonary evaluation this patient states is feeling much better and will be discharged home at this time with instructions to return to the emergency room if he develops any dizziness or chest pain or syncope. Departure Diagnosis: Primary Impression: Dizziness Condition: Stable MAIRATAJ KERR January 09, 2017 01:54
[2017-01-09 02:03] VITALS: BP 154/86; PULSE 78; RESP 18
== END 2017-01-09 02:14 | disposition home or self-care (01) ==
LOC: E/R 22:44
DX: R42 Dizziness and giddiness (principal); I10 Essential (primary) hypertension; J45.909 Unspecified asthma, uncomplicated; R07.9 Chest pain, unspecified; Z87.891 Personal history of nicotine dependence
CPT/HCPCS: 36415; 71010; 80048; 84484; 85025; 85610; 85730; 93005

== ENCOUNTER 2017-01-09 04:08 | Emergency (ER) | payer MEDICARE ==
[~2017-01-09] VITALS: Ht 170.2 cm; Wt 74.5 kg
[2017-01-09 04:16] VITALS: Ht 170.2 cm; Wt 74.5 kg
== END 2017-01-09 05:22 | disposition left against medical advice (07) ==
LOC: E/R 04:08
DX: Z53.21 Procedure and treatment not carried out due to patient leaving prior to being seen by health care provider (principal)

== ENCOUNTER 2017-01-16 04:10 | Emergency (ER) | payer MEDICARE, OTHER ==
[~2017-01-16] VITALS: Ht 167.6 cm; Wt 71.0 kg
[2017-01-16 04:17] VITALS: Ht 167.6 cm; Wt 71.0 kg
--- NOTE | 2017-01-16 04:45 | ERA ---
ER Documentation Chief Complaint Date/Time DATE: 01/16/17 TIME: 04:44 Chief Complaint High blood pressure HPI The patient is a 81-year-old male, presenting to the ER because of anxiety, high blood pressure. He did not want to take his high blood pressure because he is afraid it may drop too low. He has presented to the ER multiple times for similar symptom. He is very talkative and argumentative in the ER. He denies headache, neck pain, chest pain, dizziness, dyspnea, abdominal pain. He denies smoking or drinking Past medical history: Asthma, hypertension, dyslipidemia, anxiety, hypothyroidism, CAD ROS All systems reviewed and are negative except as per history of present illness. Medications Home Meds Reported Medications Omeprazole* (Omeprazole*) 20 Mg Capsule.dr, 20 MG PO DAILY, #30 CAP 11/28/16 Docusate Sodium* (Docusate Sodium*) 100 Mg Capsule, 200 MG PO DAILY, #30 CAP 11/28/16 Alprazolam* (Xanax*) 0.5 Mg Tab, 0.5 MG PO TID Y for ANXIETY, TAB 08/11/16 Amlodipine Besylate* (Norvasc*) 5 Mg Tablet, 5 MG PO BID, TAB 03/05/16 Aspirin* (Aspirin* EC) 81 Mg Tablet.dr, 81 MG PO DAILY, TAB 03/05/16 Losartan Potassium* (Losartan Potassium*) 100 Mg Tablet, 100 MG PO DAILY, TAB 09/12/15 Levothyroxine Sodium* (Levothyroxine Sodium*) 88 Mcg Tablet, 88 MCG PO AC BREAKFAST, TAB 05/02/15 Allergies Allergies: Coded Allergies: No Known Allergies (Verified Allergy, Mild, 11/28/16) PMhx/Soc History of Surgery: Yes (multiple stents placed, thyroidectomy, spinal surgery) Anesthesia Reaction: No Hx Neurological Disorder: Yes (dizziness, concussion x 5 ) Hx Respiratory Disorders: Yes (ASTHMA ) Hx Cardiac Disorders: Yes (HTN, HIGH CHOLESTEROL ) Hx Psychiatric Problems: No Hx Miscellaneous Medical Probl: Yes (LYMPHOMA ANXIETY, hypothyroidism) Hx Alcohol Use: No Hx Substance Use: No Hx Tobacco Use: Yes (quit 10 years ago) Physical Exam Vitals Vital Signs Date Time Temp Pulse Resp B/P Pulse Ox O2 Delivery O2 Flow Rate FiO2 01/16/17 05:09 78 21 154/94 99 Room Air 01/16/17 04:17 98.3 100 20 206/93 98 Physical Exam Const: No acute distress. Very anxious Head: Atraumatic. Eyes: Normal Conjunctiva. ENT: Normal External Ears, Nose and Mouth. Neck: Full range of motion. No meningismus. Resp: Clear to auscultation bilaterally. Cardio: Regular rate and rhythm, no murmurs. Abd: Soft, non distended, normal bowel sounds, non tender. Skin: No petechiae or rashes. Back: No midline or flank tenderness. Ext: No cyanosis, or edema. Neur: Awake and alert. No focal deficit Psych: Normal Mood and Affect. Results 24 hrs Current Medications Medications (Trade) Dose Ordered Sig/Belle Route PRN Reason Start Time Stop Time Status Last Admin Dose Admin Lorazepam (Ativan) 0.5 mg ONCE ONCE PO 01/16/17 05:00 01/16/17 05:01 DC Procedures/MDM MEDICAL MAKING DECISION: The patient is a 72-year-old male, presenting to the ER because of acute anxiety, acute excellent hypertension. He was treated with Ativan 0.5 mg for acute anxiety with good response. His blood pressure improved without any treatment to 154/94. He is stable for outpatient follow-up Departure Diagnosis: Primary Impression: Anxiety attack Additional Impression: Accelerated hypertension Condition: Good Comments I discussed the findings with the patient. I advised the patient to follow-up with the primary physician in about 1-2 days, sooner if needed and return if any concern. REGINALD LE MD January 16, 2017 04:45
[2017-01-16] MEDS ORDERED: LORAZEPAM 0.5 MG TAB PO ONE (05:00)
[2017-01-16 05:09] VITALS: BP 154/94; PULSE 78; RESP 21
== END 2017-01-16 05:09 | disposition home or self-care (01) ==
LOC: E/R 04:10
DX: F41.9 Anxiety disorder, unspecified (principal); J45.909 Unspecified asthma, uncomplicated; E03.9 Hypothyroidism, unspecified; I25.10 Atherosclerotic heart disease of native coronary artery without angina pectoris; Z79.82 Long term (current) use of aspirin; Z87.891 Personal history of nicotine dependence
CPT/HCPCS: 99283

== ENCOUNTER 2017-01-22 01:35 | Emergency (ER) | payer MEDICARE, OTHER ==
[~2017-01-22] VITALS: Wt 72.5 kg
[2017-01-22] MEDS ORDERED: SOD CHLORIDE 0.9% 1,000 ML IV ONE (02:30)
[2017-01-22] MEDS ORDERED: RANI-347 PO (02:47)
[2017-01-22] MEDS ORDERED: POLY17PO3 PO (02:47)
[2017-01-22 03:11] LABS: ADD SCAN DIFF NO
[2017-01-22 03:12] LABS: BASOPHIL # 0.1 10^3/ul (0.0-0.1); BASOPHILS % 0.7 % (0.0-2.0); EOSINOPHILS # 0.1 10^3/ul (0.0-0.5); EOSINOPHILS % 1.3 % (0.0-7.0); HEMATOCRIT 40.7 % (42.0-52.0); HEMOGLOBIN 13.5 g/dl (14.0-18.0); LYMPHOCYTES # 1.5 10^3/ul (0.8-2.9); LYMPHOCYTES % 17.6 % (15.0-51.0); MEAN CORPUSCULAR HEMOGLOBIN 30.9 pg (29.0-33.0); MEAN CORPUSCULAR HGB CONC 33.2 g/dl (32.0-37.0); MEAN CORPUSCULAR VOLUME 93.1 fl (82.0-101.0); MEAN PLATELET VOLUME 9.8 fl (7.4-10.4); MONOCYTE # 0.9 10^3/ul (0.3-0.9); MONOCYTES % 10.8 % (0.0-11.0); NEUTROPHIL # 5.9 10^3/ul (1.6-7.5); NEUTROPHILS % 69.2 % (39.0-77.0); PLATELET COUNT 223 10^3/UL (140-415); RED BLOOD COUNT 4.37 10^6/ul (4.70-6.10); RED CELL DISTRIBUTION WIDTH 14.7 % (11.5-14.5); WHITE BLOOD COUNT 8.5 10^3/ul (4.8-10.8)
--- NOTE | 2017-01-22 03:16 | RADRPT ---
PROCEDURE: CT Abdomen and pelvis without contrast. CLINICAL INDICATION: Abdominal pain. TECHNIQUE: CT scan of the abdomen and pelvis was performed on a multi-detector high-resolution CT scanner. Contiguous axial images were obtained from the lung bases to the ischial tuberosities wit hout intravenous contrast. Coronal and sagittal reformatted images were also obtained. Images were reviewed on the PACS workstation. One or more of the following dose reduction techniques were used: - Automated exposure control. - Adjustment of the mA and/or kV according to patient size. - Use of iterative reconstruction technique. Exam CTD/vol = 9.33 mGy. Total exam DLP = 587.30 mGy-cm. COMPARISON: 09/09/2015. FINDINGS: Evaluation of the lung bases demonstrates minimal bibasilar atelectasis. Abdomen: The liver is normal in size. There is no focal mass or dilatation of the biliary tree. T he gallbladder is not distended. The spleen is normal in size and contains a calcified structure me asuring 2.6 x 2.7 cm. The pancreas and bilateral adrenal glands are within normal limits. Bilatera l kidneys are normal in size with a small cyst within the mid left kidney. There is a calculus with in the mid left kidney measuring 6 x 4 mm. There is no radiopaque ureteral calculus identified. Th ere is no hydronephrosis or hydroureter. There is no retroperitoneal adenopathy. The abdominal aor ta is of normal caliber with scattered atherosclerotic calcifications. There is moderate retained stool within the colon. There is no bowel obstruction or free air. A no rmal appendix is identified. There is colonic diverticulosis without evidence of diverticulitis. T here is no ascites. Pelvis: The bladder is unremarkable. The prostate is mildly enlarged. There is no significant pel adriel adenopathy or free fluid. Evaluation of the osseous structures demonstrates no suspicious lytic or blastic lesion. IMPRESSION: No acute abnormality identified within the abdomen and pelvis. Colonic diverticulosis without evidence of diverticulitis. Moderate retained stool within the colon. Nonobstructing left renal calculus. Dystrophic splenic calcification suggestive of old infection or injury, unchanged. Vascular calcifications reflective of atherosclerosis. Mildly enlarged prostate. .Dontae Paz MD, MD Date Time Electronically viewed and signed by .Dontae Paz MD, MD on 01/22/2017 03:16 .T/
[2017-01-22 03:20] LABS: ADD UMIC NO; URINE BILIRUBIN (Dip) NEGATIVE (NEGATIVE); URINE BLOOD (Dip) NEGATIVE (NEGATIVE); URINE COLOR LT. YELLOW (YELLOW); URINE GLUCOSE (Dip) NEGATIVE (NEGATIVE); URINE KETONES (Dip) NEGATIVE (NEGATIVE); URINE LEUKOCYTE ESTERASE (Dip) NEGATIVE (NEGATIVE); URINE NITRITE (Dip) NEGATIVE (NEGATIVE); URINE TOTAL PROTEIN (Dip) NEGATIVE (NEGATIVE); URINE UROBILINOGEN (Dip) 0.2 E.U./dL (0.1-1.0)
[2017-01-22 03:28] LABS: ALBUMIN 4.2 g/dl (3.3-4.9)
[2017-01-22 03:29] LABS: POTASSIUM 4.3 mmol/L (3.5-5.1)
[2017-01-22 03:31] LABS: BILIRUBIN,INDIRECT 0.3 mg/dl (0-1.1); BILIRUBIN,TOTAL 0.3 mg/dl (0.2-1.3); CREATININE 0.91 mg/dl (0.61-1.24)
[2017-01-22 03:32] LABS: ALBUMIN/GLOBULIN RATIO 1.35; CALCIUM 8.7 mg/dl (8.4-10.2); TOTAL PROTEIN 7.3 g/dl (6.1-8.1)
[2017-01-22 05:00] VITALS: BP 138/78; PULSE 92; RESP 20
[2017-01-22] MEDS ORDERED: POLY17PO6 PO (05:32)
[2017-01-22] MEDS ORDERED: NAPR-688 PO (05:32)
[2017-01-22] MEDS ORDERED: MAGN296S40 PO (05:32)
--- NOTE | 2017-01-22 05:39 | ERD ---
ER Documentation Chief Complaint Date/Time DATE: 01/22/17 TIME: 05:36 Chief Complaint Urinary problem. Anxiety HPI 81-year-old male comes to the emergency room for abdominal pain and difficulty having a bowel movement. He says he feels like there is a not in his stomach in the mid left abdomen. He denies any fevers or chills. Denies chest pain shortness of breath. I had seen him on a prior visit where he said that recently comes to the emergency room is because he does not like to be around his . He states that this time that is not the case. He has no nausea or vomiting. ROS All systems reviewed and are negative except as per history of present illness. Medications Home Meds Active Scripts Naproxen* (Naproxen*) 500 Mg Tablet, 375 MG PO BID Y for PAIN, #14 TAB Prov:TIERA ALFARO DO 01/22/17 Magnesium Citrate* (Magnesium Citrate*) 296 Ml Solution, 296 ML PO ONCE, #1 BOTTLE Prov:TIERA ALFARO DO 01/22/17 Polyethylene Glycol* (Miralax*) 17 Gm Powd.pack, 17 GM PO DAILY, #7 Prov:TIERA ALFARO DO 01/22/17 Reported Medications Ranitidine Hcl* (Ranitidine Hcl*) 75 Mg Tablet, 75 MG PO BID Y for HEARTBURN, # 60 TAB 01/22/17 Polyethylene Glycol* (Polyethylene Glycol*) 17 Gm Powd.pack, 8.5 GM PO DAILY, # 30 PACKET 01/22/17 Omeprazole* (Omeprazole*) 20 Mg Capsule.dr, 20 MG PO DAILY, #30 CAP 11/28/16 Docusate Sodium* (Docusate Sodium*) 100 Mg Capsule, 200 MG PO DAILY, #30 CAP 11/28/16 Alprazolam* (Xanax*) 0.5 Mg Tab, 0.5 MG PO TID Y for ANXIETY, TAB 08/11/16 Amlodipine Besylate* (Norvasc*) 5 Mg Tablet, 5 MG PO BID, TAB 03/05/16 Aspirin* (Aspirin* EC) 81 Mg Tablet.dr, 81 MG PO DAILY, TAB 03/05/16 Losartan Potassium* (Losartan Potassium*) 100 Mg Tablet, 100 MG PO DAILY, TAB 09/12/15 Levothyroxine Sodium* (Levothyroxine Sodium*) 88 Mcg Tablet, 88 MCG PO AC BREAKFAST, TAB 05/02/15 Allergies Allergies: Coded Allergies: No Known Allergies (Verified Allergy, Mild, 11/28/16) PMhx/Soc History of Surgery: Yes (multiple stents placed, thyroidectomy, spinal surgery) Anesthesia Reaction: No Hx Neurological Disorder: Yes (dizziness, concussion x 5 ) Hx Respiratory Disorders: Yes (ASTHMA ) Hx Cardiac Disorders: Yes (HTN, HIGH CHOLESTEROL ) Hx Psychiatric Problems: No Hx Miscellaneous Medical Probl: Yes (LYMPHOMA ANXIETY, hypothyroidism) Hx Alcohol Use: No Hx Substance Use: No Hx Tobacco Use: No Smoking Status: Never smoker Physical Exam Vitals Vital Signs Date Time Temp Pulse Resp B/P Pulse Ox O2 Delivery O2 Flow Rate FiO2 01/22/17 01:42 97.6 86 20 172/81 97 Physical Exam Const: [] Head: Atraumatic Eyes: Normal Conjunctiva ENT: Normal External Ears, Nose and Mouth. Neck: Full range of motion..~ No meningismus. Resp: Clear to auscultation bilaterally Cardio: Regular rate and rhythm, no murmurs Abd: Soft, non tender, non distended. Normal bowel sounds Skin: No petechiae or rashes Back: No midline or flank tenderness Ext: No cyanosis, or edema Neur: Awake and alert Psych: Normal Mood and Affect Result Diagram: 01/22/17 0200 01/22/17 0200 Results 24 hrs Laboratory Tests Test 01/22/17 02:00 White Blood Count 8.510^3/ul Red Blood Count 4.3710^6/ul Hemoglobin 13.5g/dl Hematocrit 40.7% Mean Corpuscular Volume 93.1fl Mean Corpuscular Hemoglobin 30.9pg Mean Corpuscular Hemoglobin Concent 33.2g/dl Red Cell Distribution Width 14.7% Platelet Count 19500^3/UL Mean Platelet Volume 9.8fl Neutrophils % 69.2% Lymphocytes % 17.6% Monocytes % 10.8% Eosinophils % 1.3% Basophils % 0.7% Nucleated Red Blood Cells % 0.0/100WBC Neutrophils # 5.910^3/ul Lymphocytes # 1.510^3/ul Monocytes # 0.910^3/ul Eosinophils # 0.110^3/ul Basophils # 0.110^3/ul Nucleated Red Blood Cells # 0.010^3/ul Urine Color LT. YELLOW Urine Clarity CLEAR Urine pH 6.0 Urine Specific [place] 1.025 Urine Ketones NEGATIVE Urine Nitrite NEGATIVE Urine Bilirubin NEGATIVE Urine Urobilinogen 0.2 E.U./dL Urine Leukocyte Esterase NEGATIVE Urine Hemoglobin NEGATIVE Urine Glucose NEGATIVE% Urine Total Protein NEGATIVE Sodium Level 142mmol/L Potassium Level 4.3mmol/L Chloride Level 102mmol/L Carbon Dioxide Level 26mmol/L Anion Gap 18 Blood Urea Nitrogen 26mg/dl Creatinine 0.91mg/dl Glucose Level 104mg/dl Calcium Level 8.7mg/dl Total Bilirubin 0.3mg/dl Direct Bilirubin 0.00mg/dl Indirect Bilirubin 0.3mg/dl Aspartate Amino Transf (AST/SGOT) 28IU/L Alanine Aminotransferase (ALT/SGPT) 28IU/L Alkaline Phosphatase 77IU/L Total Protein 7.3g/dl Albumin 4.2g/dl Globulin 3.10g/dl Albumin/Globulin Ratio 1.35 Lipase 113U/L Current Medications Medications (Trade) Dose Ordered Sig/Belle Route PRN Reason Start Time Stop Time Status Last Admin Dose Admin Sodium Chloride (NS) 1,000 ml @ 1,000 mls/hr Q1H ONCE IV 01/22/17 02:30 01/22/17 03:29 DC 01/22/17 03:38 Procedures/MDM Constipation and elderly male. Complete workup was performed secondary to the patient's age and complaints in spite of the fact that he comes this emergency room frequently and is aware to find any acute pathology. He does have retained stool on his CAT scan. This is consistent with the symptoms he was complaining of. He has no signs of dehydration. I doubt serious bacterial infection. No signs of infection currently. I doubt any surgical abdominal emergency. He was hydrated with a liter of normal saline. I am going to discharge him with MiraLAX, magnesium citrate and naproxen for pain at a lower dose. Return precautions to the ER and primary care follow-up in 2-[address] abdomen pelvis interpretation: Moderate retained stool throughout colon. I see no other acute process. I see no obstruction, no free air, no abnormal fat stranding, no fractures Departure Diagnosis: Primary Impression: Abdominal pain Additional Impression: Constipation Condition: Stable Patient Instructions: Abdominal Pain, Constipation (Child) Additional Instructions: Call your primary care doctor TOMORROW for an appointment during the next 2-3 days.See the doctor sooner or return here if your condition worsens before your appointment time. TIERA ALFARO DO January 22, 2017 05:39
== END 2017-01-22 06:00 | disposition home or self-care (01) ==
LOC: E/R 01:35
DX: R10.9 Unspecified abdominal pain (principal); K59.00 Constipation, unspecified; J45.909 Unspecified asthma, uncomplicated; I10 Essential (primary) hypertension; E03.9 Hypothyroidism, unspecified; Z79.82 Long term (current) use of aspirin; Z98.61 Coronary angioplasty status
CPT/HCPCS: 36415; 74176; 80053; 81003; 83690; 85025; 99285; J7030

== ENCOUNTER 2017-01-28 02:43 | Emergency (ER) | payer MEDICARE, OTHER ==
[~2017-01-28] VITALS: Ht 167.6 cm; Wt 74.0 kg
[~2017-01-28 02:43] MED LIST changes: +MAGN296S40 PO; +NAPR-688 PO; +POLY17PO3 PO; +POLY17PO6 PO; +RANI-347 PO
[2017-01-28 02:48] VITALS: Ht 167.6 cm; Wt 74.0 kg
[2017-01-28] MEDS ORDERED: NICARDipine HCL 30 MG CAPSULE PO ONE (03:30)
[2017-01-28 03:57] VITALS: BP 112/67; PULSE 67; RESP 16
[2017-01-28] MEDS ORDERED: AMLODIPINE 5 MG TAB PO ONE (04:00)
--- NOTE | 2017-01-28 04:09 | ERD ---
ER Documentation Chief Complaint Date/Time DATE: 01/28/17 TIME: 04:05 Chief Complaint hypertension. hx- htn taking bp meds HPI This is a 81-year-old male with a history of hypertension who supposed to undergo a cardiac cath tomorrow morning. The patient is concerned his blood pressure is too high. He took half of his 10 mg Norvasc tablet this evening. He is here because he wants us to get his blood pressure lower. Is having no chest pain headache dizziness shortness of breath or any symptoms whatsoever. He says he is just here for blood pressure control only. He says he wants us to give him the clearance to take his other half of his Norvasc ROS All systems reviewed and are negative except as per history of present illness. Medications Home Meds Active Scripts Naproxen* (Naproxen*) 500 Mg Tablet, 375 MG PO BID Y for PAIN, #14 TAB Prov:TIERA ALFARO DO 01/22/17 Magnesium Citrate* (Magnesium Citrate*) 296 Ml Solution, 296 ML PO ONCE, #1 BOTTLE Prov:TIERA ALFARO DO 01/22/17 Polyethylene Glycol* (Miralax*) 17 Gm Powd.pack, 17 GM PO DAILY, #7 Prov:TIERA ALFARO DO 01/22/17 Reported Medications Ranitidine Hcl* (Ranitidine Hcl*) 75 Mg Tablet, 75 MG PO BID Y for HEARTBURN, # 60 TAB 01/22/17 Polyethylene Glycol* (Polyethylene Glycol*) 17 Gm Powd.pack, 8.5 GM PO DAILY, # 30 PACKET 01/22/17 Omeprazole* (Omeprazole*) 20 Mg Capsule.dr, 20 MG PO DAILY, #30 CAP 11/28/16 Docusate Sodium* (Docusate Sodium*) 100 Mg Capsule, 200 MG PO DAILY, #30 CAP 11/28/16 Alprazolam* (Xanax*) 0.5 Mg Tab, 0.5 MG PO TID Y for ANXIETY, TAB 08/11/16 Amlodipine Besylate* (Norvasc*) 5 Mg Tablet, 5 MG PO BID, TAB 03/05/16 Aspirin* (Aspirin* EC) 81 Mg Tablet., 81 MG PO DAILY, TAB 03/05/16 Losartan Potassium* (Losartan Potassium*) 100 Mg Tablet, 100 MG PO DAILY, TAB 09/12/15 Levothyroxine Sodium* (Levothyroxine Sodium*) 88 Mcg Tablet, 88 MCG PO AC BREAKFAST, TAB 05/02/15 Allergies Allergies: Coded Allergies: No Known Allergies (Unverified Allergy, Mild, 01/28/17) PMhx/Soc History of Surgery: Yes (multiple stents placed, thyroidectomy, spinal surgery) Anesthesia Reaction: No Hx Neurological Disorder: Yes (dizziness, concussion x 5 ) Hx Respiratory Disorders: Yes (ASTHMA ) Hx Cardiac Disorders: Yes (HTN, HIGH CHOLESTEROL ) Hx Psychiatric Problems: No Hx Miscellaneous Medical Probl: Yes (LYMPHOMA ANXIETY, hypothyroidism) Hx Alcohol Use: No Hx Substance Use: No Hx Tobacco Use: No FmHx Family History: No coronary disease Physical Exam Vitals Vital Signs Date Time Temp Pulse Resp B/P Pulse Ox O2 Delivery O2 Flow Rate FiO2 01/28/17 03:57 67 16 112/67 98 Room Air 01/28/17 03:23 68 16 154/79 98 Room Air 01/28/17 02:48 97.7 66 20 190/86 99 Physical Exam Const: Well-developed, well-nourished Head: Atraumatic, normocephalic Eyes: Normal Conjunctiva, PERRLA, EOMI, normal sclera, no nystagmus ENT: Normal External Ears, Nose and Mouth, moist mucus membranes. Neck: Full range of motion. No meningismus, no lymphadenopathy. Resp: Clear to auscultation bilaterally, no wheezing, rhonchi, rales Cardio: Regular rate and rhythm, no murmurs, S1 S2 present Abd: Soft, non tender x 4, non distended. Normal bowel sounds, no guarding or rebound, no pulsitile abdominal masses or bruits Skin: No petechiae or rashes, no ecchymosis , no maculopapular rash Back: No midline or flank tenderness Ext: No cyanosis, or edema, FROM x 4, normal inspection, neurovascularly intact x 4 Neur: Awake and alert, STR 5/5 x 4, sensation intact x 4, no focal findings, cerebellum intact Psych: Normal Mood and Affect Results 24 hrs Current Medications Medications (Trade) Dose Ordered Sig/Belle Route PRN Reason Start Time Stop Time Status Last Admin Dose Admin Nicardipine HCl (Cardene) 30 mg ONCE ONCE PO 01/28/17 03:30 01/28/17 03:31 Cancel Amlodipine Besylate (Norvasc) 5 mg ONCE ONCE PO 01/28/17 04:00 01/28/17 04:01 DC Procedures/MDM Patient's blood pressure is gradually declining on its own. Current blood pressure is 112/67. Will discharge home Departure Diagnosis: Primary Impression: Hypertension Hypertension type: essential hypertension Qualified Code: I10 - Essential hypertension Condition: Stable Patient Instructions: High Blood Pressure (Hypertension) Referrals: YARIEL LUNA MD (PCP) FUNMILAYO FIGUEROA DO January 28, 2017 04:09
== END 2017-01-28 04:33 | disposition home or self-care (01) ==
LOC: E/R 02:43
DX: I10 Essential (primary) hypertension (principal); J45.909 Unspecified asthma, uncomplicated; E03.9 Hypothyroidism, unspecified; Z98.61 Coronary angioplasty status; Z79.82 Long term (current) use of aspirin
CPT/HCPCS: 99282

== ENCOUNTER 2017-01-30 13:21 | Emergency (ER) | payer MEDICARE, OTHER ==
[~2017-01-30] VITALS: Ht 167.6 cm; Wt 72.5 kg
[2017-01-30 13:31] VITALS: Ht 167.6 cm; Wt 72.5 kg
--- NOTE | 2017-01-30 15:05 | ERD ---
ER Documentation Chief Complaint Date/Time DATE: 01/30/17 TIME: 1447 Chief Complaint dizziness, high blood pressure; HPI 81-year-old male presents the emergency department complaining of "my blood pressure is high " Patient has been evaluated multiple times for similar type complaints. Most recently, he had normal lab tests and was referred back to his primary care doctor. He underwent a nuclear stress test yesterday that apparently did not indicate significant cardiac disease. Today, patient presents after noticing that his blood pressure was high at home machine. Patient denies chest pain, shortness of breath, headache, focal weakness or numbness. ROS All systems reviewed and are negative except as per history of present illness. Medications Home Meds Active Scripts Naproxen* (Naproxen*) 500 Mg Tablet, 375 MG PO BID Y for PAIN, #14 TAB Prov:TIERA ALFARO DO 01/22/17 Magnesium Citrate* (Magnesium Citrate*) 296 Ml Solution, 296 ML PO ONCE, #1 BOTTLE Prov:TIERA ALFARO DO 01/22/17 Polyethylene Glycol* (Miralax*) 17 Gm Powd.pack, 17 GM PO DAILY, #7 Prov:TIERA ALFARO DO 01/22/17 Reported Medications Ranitidine Hcl* (Ranitidine Hcl*) 75 Mg Tablet, 75 MG PO BID Y for HEARTBURN, # 60 TAB 01/22/17 Polyethylene Glycol* (Polyethylene Glycol*) 17 Gm Powd.pack, 8.5 GM PO DAILY, # 30 PACKET 01/22/17 Omeprazole* (Omeprazole*) 20 Mg Capsule.dr, 20 MG PO DAILY, #30 CAP 11/28/16 Docusate Sodium* (Docusate Sodium*) 100 Mg Capsule, 200 MG PO DAILY, #30 CAP 11/28/16 Alprazolam* (Xanax*) 0.5 Mg Tab, 0.5 MG PO TID Y for ANXIETY, TAB 08/11/16 Amlodipine Besylate* (Norvasc*) 5 Mg Tablet, 5 MG PO BID, TAB 03/05/16 Aspirin* (Aspirin* EC) 81 Mg Tablet.dr, 81 MG PO DAILY, TAB 03/05/16 Losartan Potassium* (Losartan Potassium*) 100 Mg Tablet, 100 MG PO DAILY, TAB 09/12/15 Levothyroxine Sodium* (Levothyroxine Sodium*) 88 Mcg Tablet, 88 MCG PO AC BREAKFAST, TAB 05/02/15 Allergies Allergies: Coded Allergies: No Known Allergies (Unverified Allergy, Mild, 01/28/17) PMhx/Soc History of Surgery: Yes (multiple stents placed, thyroidectomy, spinal surgery) Anesthesia Reaction: No Hx Neurological Disorder: Yes (dizziness, concussion x 5 ) Hx Respiratory Disorders: Yes (ASTHMA ) Hx Cardiac Disorders: Yes (HTN, HIGH CHOLESTEROL ) Hx Psychiatric Problems: No Hx Miscellaneous Medical Probl: Yes (LYMPHOMA ANXIETY, hypothyroidism) Hx Alcohol Use: No Hx Substance Use: No Hx Tobacco Use: No FmHx Noncontributory for chief complaint Physical Exam Vitals Vital Signs Date Time Temp Pulse Resp B/P Pulse Ox O2 Delivery O2 Flow Rate FiO2 01/30/17 14:34 151/74 01/30/17 13:31 98.6 88 18 207/93 95 Physical Exam GENERAL: The patient is well developed and appropriate for usual state of health in no apparent distress HEENT: Pupils equal, round, and reactive to light. EOMI. There is no scleral icterus. NECK: C-spine is soft and supple, there is no meningismus. There is no cervical lymphadenopathy. LUNGS: Clear to auscultation bilaterally. There are no rales, wheezes or rhonchi. HEART: Regular rate and rhythm, no murmurs, clicks, rubs or gallops. ABDOMEN: Soft, non-tender, non-distended. There are bowel sounds in all four quadrants. No rebound or guarding. EXTREMITIES: There is no peripheral cyanosis or edema. No focal swelling or erythema. NEURO: The patient moves all four extremities with 5/5 strength. Cranial nerves II - XII are intact. Normal gait. Alert and oriented SKIN: There is no apparent rash or petechiae. HEME/LYMPHATIC: There is no evidence of excessive bruising or lymphedema. PSYCHIATRIC: Patient appears anxious but with normal insight and judgment and no suicidal thoughts. Procedures/MDM Patient was taken to a room, seen and examined Medical decision makin-year-old male with multiple recurrent visits for hypertension once again presents for hypertension. Although he is hypertensive , he has no evidence of hypertensive emergency at this time. He has just recently had blood tests performed as well as noninvasive stress testing. Patient has been reassured, appears clinically well and now appears appropriate for outpatient care. Departure Diagnosis: Primary Impression: Hypertension Additional Impression: Benign labile hypertension Condition: Stable Patient Instructions: High Blood Pressure (Hypertension) Referrals: YARIEL LUNA MD (PCP) Additional Instructions: Continue all your medications for blood pressure. See your doctor on Wednesday. Return for any problems or concerns BRADY LEONARD January 30, 2017 15:05
[2017-01-30 15:06] VITALS: BP 149/71; PULSE 80; RESP 18
[2017-01-30] MEDS ORDERED: AMLO-147 PO (17:49)
== END 2017-01-30 15:06 | disposition home or self-care (01) ==
LOC: E/R 13:21
DX: I10 Essential (primary) hypertension (principal); J45.909 Unspecified asthma, uncomplicated; E03.9 Hypothyroidism, unspecified; Z79.82 Long term (current) use of aspirin; Z98.61 Coronary angioplasty status
CPT/HCPCS: 93005; 99282

== ENCOUNTER 2017-01-30 17:30 | Emergency (ER) | payer MEDICARE, OTHER ==
[~2017-01-30] VITALS: Wt 72.5 kg
[2017-01-30] MEDS ORDERED: AMLO-147 PO (17:49)
--- NOTE | 2017-01-30 17:58 | ERD ---
ER Documentation Chief Complaint Date/Time DATE: 01/30/17 TIME: 17:50 Chief Complaint HYPERTENSION BLOOD PRESSURE HPI 81-year-old male presents the emergency room with hypertension that he checked at home. He was seen earlier today and was discharged by another physician. No signs of cardiac ischemia at that time. This patient few other times any comes emergency room frequently for various complaints. I explained to him that we can acutely lower his asymptomatic blood pressure. He has no chest pain shortness of breath abdominal pain lightheadedness nausea or vomiting currently. He simply wants to talk to a doctor about his hypertension. I spoke with him numerous times in the past about this. ROS All systems reviewed and are negative except as per history of present illness. Medications Home Meds Active Scripts Amlodipine Besylate* (Amlodipine Besylate*) 10 Mg Tablet, 10 MG PO BID, #30 TAB Prov:TIERA ALFARO DO 01/30/17 Naproxen* (Naproxen*) 500 Mg Tablet, 375 MG PO BID Y for PAIN, #14 TAB Prov:TIERA ALFARO DO 01/22/17 Magnesium Citrate* (Magnesium Citrate*) 296 Ml Solution, 296 ML PO ONCE, #1 BOTTLE Prov:DOMINICTIERA 01/22/17 Polyethylene Glycol* (Miralax*) 17 Gm Powd.pack, 17 GM PO DAILY, #7 Prov:DOMINICTIERA 01/22/17 Reported Medications Ranitidine Hcl* (Ranitidine Hcl*) 75 Mg Tablet, 75 MG PO BID Y for HEARTBURN, # 60 TAB 01/22/17 Polyethylene Glycol* (Polyethylene Glycol*) 17 Gm Powd.pack, 8.5 GM PO DAILY, # 30 PACKET 01/22/17 Omeprazole* (Omeprazole*) 20 Mg Capsule.dr, 20 MG PO DAILY, #30 CAP 11/28/16 Docusate Sodium* (Docusate Sodium*) 100 Mg Capsule, 200 MG PO DAILY, #30 CAP 11/28/16 Alprazolam* (Xanax*) 0.5 Mg Tab, 0.5 MG PO TID Y for ANXIETY, TAB 08/11/16 Amlodipine Besylate* (Norvasc*) 5 Mg Tablet, 5 MG PO BID, TAB 03/05/16 Aspirin* (Aspirin* EC) 81 Mg Tablet., 81 MG PO DAILY, TAB 03/05/16 Losartan Potassium* (Losartan Potassium*) 100 Mg Tablet, 100 MG PO DAILY, TAB 09/12/15 Levothyroxine Sodium* (Levothyroxine Sodium*) 88 Mcg Tablet, 88 MCG PO AC BREAKFAST, TAB 05/02/15 Allergies Allergies: Coded Allergies: No Known Allergies (Unverified Allergy, Mild, 01/28/17) PMhx/Soc History of Surgery: Yes (multiple stents placed, thyroidectomy, spinal surgery) Anesthesia Reaction: No Hx Neurological Disorder: Yes (dizziness, concussion x 5 ) Hx Respiratory Disorders: Yes (ASTHMA ) Hx Cardiac Disorders: Yes (HTN, HIGH CHOLESTEROL ) Hx Psychiatric Problems: No Hx Miscellaneous Medical Probl: Yes (LYMPHOMA ANXIETY, hypothyroidism) Hx Alcohol Use: No Hx Substance Use: No Hx Tobacco Use: No Physical Exam Vitals Vital Signs Date Time Temp Pulse Resp B/P Pulse Ox O2 Delivery O2 Flow Rate FiO2 01/30/17 17:34 98.8 88 20 188/85 98 Physical Exam Const: [] No distress Head: Atraumatic Eyes: Normal Conjunctiva ENT: Normal External Ears, Nose and Mouth. Neck: Full range of motion..~ No meningismus. Resp: Clear to auscultation bilaterally Cardio: Regular rate and rhythm, no murmurs Abd: Soft, non tender, non distended. Normal bowel sounds Skin: No petechiae or rashes Back: No midline or flank tenderness Ext: No cyanosis, or edema Neur: Awake and alert Psych: Normal Mood and Affect Procedures/MDM Asymptomatic hypertension in elderly male. Patient has been evaluated early in the emergency room today. He has no other complaints except that he wants to repeatedly talk to physicians about his entire medical history. I spent approximately 9 minutes going through all of the paperwork he has with him about unrelated medical problems including surgeries he had 30 years ago. I discharge with primary care follow-up as well as return precautions emergency room if he develops any chest pain or concerning symptoms. Departure Diagnosis: Primary Impression: Hypertension Condition: Stable Patient Instructions: High Blood Pressure (Hypertension) Referrals: YARIEL LUNA MD (PCP) Additional Instructions: Llame al doctor MALGORZATAANA y giancarlo devika MELI PARA DENTRO DE 2-3 HIGGINS.Dgale a la secretaria que nosotros le instruimos hacer esta meli.Avise o llame si fleming condicin se empeora antes de la meli. Regresa aqui si peor o no mejor. TIERA ALFARO DO January 30, 2017 17:58
== END 2017-01-30 18:04 | disposition home or self-care (01) ==
LOC: E/R 17:30
DX: I10 Essential (primary) hypertension (principal); J45.909 Unspecified asthma, uncomplicated; E03.9 Hypothyroidism, unspecified; Z79.82 Long term (current) use of aspirin; Z98.61 Coronary angioplasty status
CPT/HCPCS: 99283

== ENCOUNTER 2017-02-15 19:31 | Emergency (ER) | payer MEDICARE, OTHER ==
[~2017-02-15] VITALS: Ht 157.5 cm; Wt 72.5 kg
[~2017-02-15 19:31] MED LIST changes: +AMLO-147 PO
[2017-02-15 19:38] VITALS: Ht 157.5 cm; Wt 72.5 kg
[2017-02-15 22:54] LABS: ADD SCAN DIFF NO
[2017-02-15 22:57] LABS: BASOPHILS % 0.4 % (0.0-2.0); EOSINOPHILS # 0.2 10^3/ul (0.0-0.5); EOSINOPHILS % 1.6 % (0.0-7.0); HEMATOCRIT 41.7 % (42.0-52.0); LYMPHOCYTES # 1.7 10^3/ul (0.8-2.9); LYMPHOCYTES % 18.5 % (15.0-51.0); MEAN CORPUSCULAR HEMOGLOBIN 31.5 pg (29.0-33.0); MEAN CORPUSCULAR HGB CONC 33.6 g/dl (32.0-37.0); MEAN CORPUSCULAR VOLUME 93.9 fl (82.0-101.0); MEAN PLATELET VOLUME 9.9 fl (7.4-10.4); MONOCYTE # 0.8 10^3/ul (0.3-0.9); MONOCYTES % 8.3 % (0.0-11.0); NEUTROPHIL # 6.5 10^3/ul (1.6-7.5); NEUTROPHILS % 70.9 % (39.0-77.0); PLATELET COUNT 242 10^3/UL (140-415); RED BLOOD COUNT 4.44 10^6/ul (4.70-6.10); RED CELL DISTRIBUTION WIDTH 14.8 % (11.5-14.5); WHITE BLOOD COUNT 9.1 10^3/ul (4.8-10.8)
[2017-02-15] MEDS ORDERED: AMLODIPINE 5 MG TAB PO ONE (23:00)
--- NOTE | 2017-02-15 23:10 | RADRPT ---
PROCEDURE: CT BRAIN WITHOUT CONTRAST CLINICAL INDICATION: 81-year-old male with syncope. TECHNIQUE: The study was performed utilizing [employer] VCT 64-slice CT scanner. Direct axial sections were obtained from the foramen magnum to the vertex without the use of intravenous contrast material. Sagittal and coronal reformations were obtained. Sagittal and coronal reformations were obtained. One or more the following dose reduction techniques were utilized: automated exposure cont rol, adjustment of the mA and/or kV according to patient's size or use of iterative reconstruction t echnique. The images were viewed on a PACS workstation. CTD/vol = 44.0 mGy; Total Exam DLP = 728.2 mGy-cm. COMPARISON: CT brain November 02, 2016. FINDINGS: There is moderate degree of diffuse cortical and central atrophy with compensatory ventricular enlar gement. There is no evidence for mass effect or midline shift. There are periventricular areas of decreased density consistent with microangiopathic ischemic changes. There again identified multiple ovoid extra-axial calcifications within the posterior fossa as well as within the inferior aspect o f the middle cranial fossa. There is no evidence for acute intra or extra-axial blood. Calcification s are seen within the intracranial carotid arteries bilaterally. The bony calvarium is intact. The p artially visualized paranasal sinuses and mastoid air cells are without significant abnormal soft ti ssue. IMPRESSION: 1. There has been no marked interval change compared to the patient's prior CT scan from October. 2. Moderate diffuse atrophy. 3. Microangiopathic ischemic changes. 4. Multiple ovoid extra-axial radiopaque densities identified within the posterior and middle crani al fossa. These presumably are from a prior pantopaque myelogram. 5. Vascular calcifications. .Everardo Simon MD, MD Date Time Electronically viewed and signed by .Everardo Simon MD, MD on 02/15/2017 23:09 .M/
--- NOTE | 2017-02-15 23:12 | RADRPT ---
PROCEDURE: CHEST - 1 VIEW CLINICAL INDICATION: 81-year-old male with syncope. TECHNIQUE: A single frontal AP portable upright view of the chest was performed. The images were reviewed on a PACS workstation. COMPARISON: Chest x-ray November 28, 2016; chest x-ray January 09, 2017; CT abdomen/pelvis January 22, 2017. FINDINGS: The cardiomediastinal silhouette has a normal appearance. There is no evidence for an infiltrate. There is no evidence for congestive heart failure. There is no evidence for pneumothorax. There are again identified a ovoid left upper quadrant calcific densities within the spine. The osseous struct ures are intact. IMPRESSION: 1. No evidence for active cardiopulmonary disease. 2. Ovoid splenic calcifications as previously visualized. .Everardo Simon MD, Date Time Electronically viewed and signed by .Everardo Simon MD, MD on 02/15/2017 23:12 .M/
[2017-02-15 23:14] LABS: INR 1.01; PARTIAL THROMBOPLASTIN TIME 28.3 Sec (25.0-35.0); PROTIME 13.3 Sec (12.2-14.2)
[2017-02-15 23:17] LABS: ANION GAP 16 (8-16); BLOOD UREA NITROGEN 21 mg/dl (7-20); CALCIUM 9.5 mg/dl (8.4-10.2); CARBON DIOXIDE 27 mmol/L (21-31); CHLORIDE 103 mmol/L (97-110); CREATININE 1.03 mg/dl (0.61-1.24); GLUCOSE 108 mg/dl (70-220); POTASSIUM 4.2 mmol/L (3.5-5.1); SODIUM 142 mmol/L (135-144)
[2017-02-15 23:32] LABS: TROPONIN-I < 0.012 ng/ml (0.00-0.12)
--- NOTE | 2017-02-15 23:55 | ERD ---
ER Documentation Chief Complaint Date/Time DATE: 02/15/17 TIME: 23:54 Chief Complaint dizziness for 2 days HPI This is a 81-year-old male says blood pressures been elevated for the past 2 days. He denies any chest pain. He says been feeling very anxious. He said he lost that she did tell the mother take his blood pressure. Denies any nausea vomiting. Denies any fevers or chills. Denies any other current issues ROS All systems reviewed and are negative except as per history of present illness. Medications Home Meds Reported Medications Ranitidine Hcl* (Ranitidine Hcl*) 75 Mg Tablet, 75 MG PO BID Y for HEARTBURN, # 60 TAB 01/22/17 Omeprazole* (Omeprazole*) 20 Mg Capsule.dr, 20 MG PO DAILY, #30 CAP 11/28/16 Docusate Sodium* (Docusate Sodium*) 100 Mg Capsule, 200 MG PO DAILY, #30 CAP 11/28/16 Alprazolam* (Xanax*) 0.5 Mg Tab, 0.5 MG PO TID Y for ANXIETY, TAB 08/11/16 Amlodipine Besylate* (Norvasc*) 5 Mg Tablet, 5 MG PO BID, TAB 03/05/16 Aspirin* (Aspirin* EC) 81 Mg Tablet.dr, 81 MG PO DAILY, TAB 03/05/16 Losartan Potassium* (Losartan Potassium*) 100 Mg Tablet, 100 MG PO DAILY, TAB 09/12/15 Levothyroxine Sodium* (Levothyroxine Sodium*) 88 Mcg Tablet, 88 MCG PO AC BREAKFAST, TAB 05/02/15 Discontinued Reported Medications Polyethylene Glycol* (Polyethylene Glycol*) 17 Gm Powd.pack, 8.5 GM PO DAILY, # 30 PACKET 01/22/17 Discontinued Scripts Amlodipine Besylate* (Amlodipine Besylate*) 10 Mg Tablet, 10 MG PO BID, #30 TAB Prov:TIERA ALFARO DO 01/30/17 Naproxen* (Naproxen*) 500 Mg Tablet, 375 MG PO BID Y for PAIN, #14 TAB Prov:TIERA ALFARO DO 01/22/17 Magnesium Citrate* (Magnesium Citrate*) 296 Ml Solution, 296 ML PO ONCE, #1 BOTTLE Prov:TIERA ALFARO DO 01/22/17 Polyethylene Glycol* (Miralax*) 17 Gm Powd.pack, 17 GM PO DAILY, #7 Prov:TIERA ALFARO DO 01/22/17 Allergies Allergies: Coded Allergies: No Known Allergies (Unverified Allergy, Mild, 01/28/17) PMhx/Soc History of Surgery: Yes (multiple stents placed, thyroidectomy, spinal surgery) Anesthesia Reaction: No Hx Neurological Disorder: Yes (dizziness, concussion x 5 ) Hx Respiratory Disorders: Yes (ASTHMA ) Hx Cardiac Disorders: Yes (HTN, HIGH CHOLESTEROL ) Hx Psychiatric Problems: No Hx Miscellaneous Medical Probl: Yes (LYMPHOMA ANXIETY, hypothyroidism) Hx Alcohol Use: No Hx Substance Use: No Hx Tobacco Use: No Smoking Status: Never smoker Physical Exam Vitals Vital Signs Date Time Temp Pulse Resp B/P Pulse Ox O2 Delivery O2 Flow Rate FiO2 02/15/17 19:38 98.7 99 18 155/97 96 Physical Exam Const: [] Head: Atraumatic Eyes: Normal Conjunctiva ENT: Normal External Ears, Nose and Mouth. Neck: Full range of motion..~ No meningismus. Resp: Clear to auscultation bilaterally Cardio: Regular rate and rhythm, no murmurs Abd: Soft, non tender, non distended. Normal bowel sounds Skin: No petechiae or rashes Back: No midline or flank tenderness Ext: No cyanosis, or edema Neur: Awake and alert Psych: Normal Mood and Affect Result Diagram: 02/15/17224002/15/172240 Results 24 hrs Laboratory Tests Test 02/15/17 22:41 White Blood Count 9.110^3/ul Red Blood Count 4.4410^6/ul Hemoglobin 14.0g/dl Hematocrit 41.7% Mean Corpuscular Volume 93.9fl Mean Corpuscular Hemoglobin 31.5pg Mean Corpuscular Hemoglobin Concent 33.6g/dl Red Cell Distribution Width 14.8% Platelet Count 79262^3/UL Mean Platelet Volume 9.9fl Neutrophils % 70.9% Lymphocytes % 18.5% Monocytes % 8.3% Eosinophils % 1.6% Basophils % 0.4% Nucleated Red Blood Cells % 0.0/100WBC Neutrophils # 6.510^3/ul Lymphocytes # 1.710^3/ul Monocytes # 0.810^3/ul Eosinophils # 0.210^3/ul Basophils # 0.010^3/ul Nucleated Red Blood Cells # 0.010^3/ul Prothrombin Time 13.3Sec Prothrombin Time Ratio 1.0 INR International Normalized Ratio 1.01 Activated Partial Thromboplast Time 28.3Sec Sodium Level 142mmol/L Potassium Level 4.2mmol/L Chloride Level 103mmol/L Carbon Dioxide Level 27mmol/L Anion Gap 16 Blood Urea Nitrogen 21mg/dl Creatinine 1.03mg/dl Glucose Level 108mg/dl Calcium Level 9.5mg/dl Troponin I < 0.012ng/ml Current Medications Medications (Trade) Dose Ordered Sig/Belle Route PRN Reason Start Time Stop Time Status Last Admin Dose Admin Amlodipine Besylate (Norvasc) 5 mg ONCE ONCE PO 02/15/17 23:00 02/15/17 23:01 DC 02/15/17 23:22 Procedures/MDM EKG: Rate/Rhythm: [Normal Sinus Rhythm] QRS, ST, T-waves: [No changes consistent w/ acute ischemia] Impression: [No evidence of ischemia or arrhythmia] Chest X-ray 1V Interpreted by me: Soft Tissue: No acute abnormalities Bones: No acute abnormalities Mediastinum/Cardiac Silhouette/Lungs: [No acute abnormalities] Patient's blood pressure was elevated (>120/80) but appears stable without evidence of hypertension emergency or urgency. The patient was counseled about the risks of hypertension and urged to pursue outpatient monitoring and therapy within a week with their primary care physician. Departure Diagnosis: Primary Impression: Hypertension Hypertension type: essential hypertension Qualified Code: I10 - Essential hypertension Additional Impression: Benign labile hypertension Condition: Stable GEOVANY MCCRACKEN Feb 15, 2017 23:55
[2017-02-16 00:16] VITALS: BP 137/63; PULSE 88; RESP 18
== END 2017-02-16 00:17 | disposition home or self-care (01) ==
LOC: E/R 19:31
DX: I10 Essential (primary) hypertension (principal); J45.909 Unspecified asthma, uncomplicated; E03.9 Hypothyroidism, unspecified; R55 Syncope and collapse; Z98.61 Coronary angioplasty status; Z79.82 Long term (current) use of aspirin
CPT/HCPCS: 36415; 70450; 71010; 80048; 84484; 85025; 85610; 85730; 93005

== ENCOUNTER 2017-02-26 10:46 | Emergency (ER) | payer MEDICARE, OTHER ==
[~2017-02-26] VITALS: Ht 167.6 cm; Wt 72.0 kg
[~2017-02-26 10:46] MED LIST changes: -AMLO-147 PO; -MAGN296S40 PO; -NAPR-688 PO; -POLY17PO3 PO; -POLY17PO6 PO
[2017-02-26 10:50] VITALS: Ht 167.6 cm; Wt 72.0 kg
[2017-02-26 14:12] LABS: CALCIUM 9.4 mg/dl (8.4-10.2); CREATININE 0.93 mg/dl (0.61-1.24); POTASSIUM 3.9 mmol/L (3.5-5.1)
[2017-02-26 15:08] LABS: ADD UMIC NO; UR ASCORBIC ACID NEGATIVE (NEGATIVE); UR BILIRUBIN (Dip) NEGATIVE (NEGATIVE); UR BLOOD (Dip) NEGATIVE (NEGATIVE); UR CLARITY CLEAR (CLEAR); UR COLOR COLORLESS (YELLOW); UR GLUCOSE (Dip) NEGATIVE (NEGATIVE); UR KETONES (Dip) NEGATIVE (NEGATIVE); UR LEUKOCYTE ESTERASE (Dip) NEGATIVE Leu/ul (NEGATIVE); UR NITRITE (Dip) NEGATIVE (NEGATIVE); UR SPECIFIC GRAVITY (Dip) 1.001 (1.003-1.030); UR TOTAL PROTEIN (Dip) NEGATIVE (NEGATIVE); UR UROBILINOGEN (Dip) NEGATIVE (NEGATIVE)
[2017-02-26 17:10] VITALS: BP 170/82; PULSE 63; RESP 20
--- NOTE | 2017-03-11 16:37 | ERD ---
ER Documentation Chief Complaint Date/Time DATE: 03/11/17 TIME: 16:34 Chief Complaint Sent from MD for eval constaipation and unable to urinate HPI Patient is a 81-year-old male with history of hypertension who states that he was sent to the ER by his PMD for workup. The patient cannot state what workup was recommended, and states he did not see his PMD today. He reports having some discomfort with urination and constipation, but did have a bowel movement today. He denies vomiting or abdominal pain. He denies dizziness, headache, diminished urine output, shortness of breath. He feels anxious about his blood pressure because it has been high recently. ROS All systems reviewed and are negative except as per history of present illness. Medications Home Meds Reported Medications Ranitidine Hcl* (Ranitidine Hcl*) 75 Mg Tablet, 75 MG PO BID Y for HEARTBURN, # 60 TAB 01/22/17 Omeprazole* (Omeprazole*) 20 Mg Capsule.dr, 20 MG PO DAILY, #30 CAP 11/28/16 Docusate Sodium* (Docusate Sodium*) 100 Mg Capsule, 200 MG PO DAILY, #30 CAP 11/28/16 Alprazolam* (Xanax*) 0.5 Mg Tab, 0.5 MG PO TID Y for ANXIETY, TAB 08/11/16 Amlodipine Besylate* (Norvasc*) 5 Mg Tablet, 5 MG PO BID, TAB 03/05/16 Aspirin* (Aspirin* EC) 81 Mg Tablet.dr, 81 MG PO DAILY, TAB 03/05/16 Losartan Potassium* (Losartan Potassium*) 100 Mg Tablet, 100 MG PO DAILY, TAB 09/12/15 Levothyroxine Sodium* (Levothyroxine Sodium*) 88 Mcg Tablet, 88 MCG PO AC BREAKFAST, TAB 05/02/15 Allergies Allergies: Coded Allergies: No Known Allergies (Unverified Allergy, Mild, 02/26/17) PMhx/Soc Past medical history: Hypertension, hypothyroidism, gastritis Past surgical history: Denies Social history: Denies tobacco or alcohol History of Surgery: Yes (multiple stents placed, thyroidectomy, spinal surgery) Anesthesia Reaction: No Hx Neurological Disorder: Yes (dizziness, concussion x 5 ) Hx Respiratory Disorders: Yes (ASTHMA ) Hx Cardiac Disorders: Yes (HTN, HIGH CHOLESTEROL ) Hx Psychiatric Problems: No Hx Miscellaneous Medical Probl: Yes (LYMPHOMA ANXIETY, hypothyroidism) Hx Alcohol Use: No Hx Substance Use: No Hx Tobacco Use: No Smoking Status: Unknown if ever smoked FmHx Family History: No coronary disease, No diabetes Physical Exam Physical Exam Const: Alert, no acute distress Head: Atraumatic Eyes: Normal Conjunctiva, no pallor, no icterus ENT: Normal External Ears, Nose and Mouth. Neck: Full range of motion..~ No meningismus. Resp: Clear to auscultation bilaterally Cardio: Regular rate and rhythm, no murmurs Abd: Soft, non tender, non distended., No guarding, no rebound Skin: No petechiae or rashes Back: No midline or flank tenderness Ext: No cyanosis, or edema Neur: Awake and alert, cranial nerves II through XII intact bilaterally, moves and feels 4 extremities appropriately, normal gait, no dysmetria Psych: Normal Mood and Affect Results 24 hrs Laboratory Tests Test 02/26/17 13:15 02/26/17 14:15 Sodium Level 137mmol/L Potassium Level 3.9mmol/L Chloride Level 97mmol/L Carbon Dioxide Level 30mmol/L Anion Gap 14 Blood Urea Nitrogen 16mg/dl Creatinine 0.93mg/dl Glucose Level 99mg/dl Calcium Level 9.4mg/dl Urine Color COLORLESS Urine Clarity CLEAR Urine pH 7.0 Urine Specific [employer] 1.001 Urine Ketones NEGATIVEmg/dL Urine Nitrite NEGATIVEmg/dL Urine Bilirubin NEGATIVEmg/dL Urine Urobilinogen NEGATIVEmg/dL Urine Leukocyte Esterase NEGATIVELeu/ul Urine Hemoglobin NEGATIVEmg/dL Urine Glucose NEGATIVEmg/dL Urine Total Protein NEGATIVEmg/dl Procedures/MDM MDM: Patient is a 81-year-old male who comes to the ER with anxiety but his blood pressure. The patient has no significant elevation of his blood pressure in the ER, and on further history he describes having labile blood pressure. The patient does complain of constipation, but has no signs of obstruction. He complains of urinary frequency, but has no signs of UTI or urinary retention. He has no signs of hyperglycemia. He has normal electrolytes. With regards to his hypertension, there is no evidence of endorgan damage. The patient stated that he was sent to the ER by his PMD, so I called his PMD, who stated that he had not actually seen the patient but had received a call with the patient complaining of constipation and elevated blood pressure and would like the patient to be evaluated. We agreed that I would check basic electrolytes and UA. I explained that I do not believe the patient had bowel obstruction or intra-abdominal pathology. He agreed to follow-up with the patient as an outpatient for further titration of antihypertensive medication. While in the ER, the patient's blood pressure did become elevated. The patient was due for a dose of his medication which he did not have with him. I felt was reasonable to discharge him home to take his home medications, and advised him on return precautions and following up with his PMD. Departure Diagnosis: Primary Impression: HTN (hypertension) Condition: Stable Patient Instructions: High Blood Pressure (Hypertension) Additional Instructions: Return to the ER for new or worsening symptoms. Follow-up with your PMD in 3 days. JEAN-CLAUDE CABA MD Mar 11, 2017 16:37
== END 2017-02-26 17:17 | disposition home or self-care (01) ==
LOC: E/R 10:46
DX: I10 Essential (primary) hypertension (principal); J45.909 Unspecified asthma, uncomplicated; E03.9 Hypothyroidism, unspecified; Z79.82 Long term (current) use of aspirin
CPT/HCPCS: 80048; 81003; 99283

== ENCOUNTER 2017-05-19 18:07 | Emergency (ER) | payer MEDICARE, OTHER ==
[~2017-05-19] VITALS: Wt 74.0 kg
[2017-05-19 18:45] VITALS: BP 131/85; PULSE 98; RESP 17; TEMP 98.1
--- NOTE | 2017-05-19 18:54 | ERD ---
ER Documentation Chief Complaint Date/Time DATE: 05/19/17 TIME: 18:51 Chief Complaint DIZZINESS, UNSTABLE BLOOD PRESSURE PER PT, NO PAIN REPORTED HPI This is a 81-year-old male history of essential hypertension who presents to the emergency room complaining that I need to adjust his blood pressure medications. He states that his blood pressure is all out of whack because he has to take his blood pressure medications at 6 AM. He is asking for me to rearrange his blood pressure medications throughout the day. The patient has a notebook with at least 50 different blood pressure measurements today ranging from systolic of 142 170 with an isolated blood pressure in the 200s. He denies any chest pain or shortness of breath, no headache no exertional symptoms. At triage she noted dizziness but he denies this to me. ROS All systems reviewed and are negative except as per history of present illness. Medications Home Meds Reported Medications Ranitidine Hcl* (Ranitidine Hcl*) 75 Mg Tablet, 75 MG PO BID Y for HEARTBURN, # 60 TAB 01/22/17 Omeprazole* (Omeprazole*) 20 Mg Capsule.dr, 20 MG PO DAILY, #30 CAP 11/28/16 Docusate Sodium* (Docusate Sodium*) 100 Mg Capsule, 200 MG PO DAILY, #30 CAP 11/28/16 Alprazolam* (Xanax*) 0.5 Mg Tab, 0.5 MG PO TID Y for ANXIETY, TAB 08/11/16 Amlodipine Besylate* (Norvasc*) 5 Mg Tablet, 5 MG PO BID, TAB 03/05/16 Aspirin* (Aspirin* EC) 81 Mg Tablet.dr, 81 MG PO DAILY, TAB 03/05/16 Losartan Potassium* (Losartan Potassium*) 100 Mg Tablet, 100 MG PO DAILY, TAB 09/12/15 Levothyroxine Sodium* (Levothyroxine Sodium*) 88 Mcg Tablet, 88 MCG PO AC BREAKFAST, TAB 05/02/15 Allergies Allergies: Coded Allergies: No Known Allergies (Unverified Allergy, Mild, 02/26/17) PMhx/Soc History of Surgery: Yes (multiple stents placed, thyroidectomy, spinal surgery) Anesthesia Reaction: No Hx Neurological Disorder: Yes (dizziness, concussion x 5 ) Hx Respiratory Disorders: Yes (ASTHMA ) Hx Cardiac Disorders: Yes (HTN, HIGH CHOLESTEROL ) Hx Psychiatric Problems: No Hx Miscellaneous Medical Probl: Yes (LYMPHOMA ANXIETY, hypothyroidism) Hx Alcohol Use: No Hx Substance Use: No Hx Tobacco Use: No Smoking Status: Never smoker FmHx Family History: No diabetes Physical Exam Vitals Vital Signs Date Time Temp Pulse Resp B/P Pulse Ox O2 Delivery O2 Flow Rate FiO2 05/19/17 18:45 98.1 98 17 131/85 98 05/19/17 18:11 98.1 89 17 130/84 98 Physical Exam General: Well developed, well nourished, no acute distress Head: Normocephalic, atraumatic. Eyes: Pupils equally reactive, EOM intact ENT: Moist mucous membranes Neck: Supple, no lymphadenopathy Respiratory: Lungs clear bilaterally, no distress Cardiovascular: RRR, no murmurs, rubs, or gallops Abdominal: Soft, non-tender, non-distended, no peritoneal signs : Deferred MSK: No edema, no unilateral swelling, 5/5 strength Neurologic: Alert and oriented, moving all extremities, normal speech, no focal weakness, no cerebellar signs Skin: No rash Psych: Normal mood Procedures/MDM The patient presents for evaluation of asymptomatic hypertension. I believe the major issue here is that the patient is taking a significant number of blood pressure readings throughout the day. He shows me a notebook that has at least 30-50 different blood pressure readings today. None of which are all that alarming. He seems to have blood pressures ranging from 130-170. There is a single number in the 200s. However, the patient is asymptomatic. He states compliance with his blood pressure medications. The patient is asking for a solution on when and how to take his blood pressure medications. I advised him that this is something that a primary care physician needs to do. The patient has no evidence of endorgan dysfunction and does not require laboratory testing or diagnostic imaging. I recommended that the patient only take 3 blood pressures per day and follow- up with his primary care physician for management of his blood pressure medication regimen. Patient's blood pressure was elevated (>120/80) but appears stable without evidence of hypertensive emergency or urgency. The patient was counseled about the risks of hypertension and urged to pursue outpatient monitoring and therapy within a week with their primary care physician. Anxiety is playing a large role We discussed follow up with the patient's primary care doctor within 24 to 48 hours as needed. We also discussed return to the emergency room for worsening symptoms or worsening condition. Departure Diagnosis: Primary Impression: Asymptomatic hypertension Condition: Stable Patient Instructions: High Blood Pressure (Hypertension) Additional Instructions: Call your primary care doctor TOMORROW for an appointment during the next 1 WEEK.Tell the racing secretary that you were referred from this facility.See the doctor sooner or return here if your condition worsens before your appointment time. NHAN HE MD May 19, 2017 18:54
== END 2017-05-19 18:53 | disposition home or self-care (01) ==
LOC: E/R 18:07
DX: I10 Essential (primary) hypertension (principal); J45.909 Unspecified asthma, uncomplicated; E03.9 Hypothyroidism, unspecified; Z98.61 Coronary angioplasty status; Z79.82 Long term (current) use of aspirin
CPT/HCPCS: 99282

== ENCOUNTER 2017-05-23 20:33 | Emergency (ER) | payer MEDICARE, OTHER ==
[~2017-05-23] VITALS: Ht 170.2 cm; Wt 73.0 kg
[2017-05-23 20:37] VITALS: Ht 170.2 cm; Wt 73.0 kg
[2017-05-23] MEDS ORDERED: NICARDipine HCL 30 MG CAPSULE PO ONE (21:00)
--- NOTE | 2017-05-23 22:55 | ERD ---
ER Documentation Chief Complaint Date/Time DATE: 05/23/17 TIME: 22:54 Chief Complaint Pressure trending up after taking night BP meds at 1999, denies pain HPI This is a 81-year-old male with a history of hypertension states that his blood pressure starting to get more elevated as it is going on. Patient has a reading of 180/79 home. Patient is very diligent about his blood pressure medication takes Norvasc 5 mg twice daily. Patient has no headache no chest pain or shortness of breath numbness weakness or tingling. Patient is here because he wants a blood pressure control. Patient denies eating a salty meal says he is having some personal stress tonight ROS All systems reviewed and are negative except as per history of present illness. Medications Home Meds Reported Medications Ranitidine Hcl* (Ranitidine Hcl*) 75 Mg Tablet, 75 MG PO BID Y for HEARTBURN, # 60 TAB 01/22/17 Omeprazole* (Omeprazole*) 20 Mg Capsule.dr, 20 MG PO DAILY, #30 CAP 11/28/16 Docusate Sodium* (Docusate Sodium*) 100 Mg Capsule, 200 MG PO DAILY, #30 CAP 11/28/16 Alprazolam* (Xanax*) 0.5 Mg Tab, 0.5 MG PO TID Y for ANXIETY, TAB 08/11/16 Amlodipine Besylate* (Norvasc*) 5 Mg Tablet, 5 MG PO BID, TAB 03/05/16 Aspirin* (Aspirin* EC) 81 Mg Tablet.dr, 81 MG PO DAILY, TAB 03/05/16 Losartan Potassium* (Losartan Potassium*) 100 Mg Tablet, 100 MG PO DAILY, TAB 09/12/15 Levothyroxine Sodium* (Levothyroxine Sodium*) 88 Mcg Tablet, 88 MCG PO AC BREAKFAST, TAB 05/02/15 Allergies Allergies: Coded Allergies: No Known Allergies (Unverified Allergy, Mild, 02/26/17) PMhx/Soc History of Surgery: Yes (multiple stents placed, thyroidectomy, spinal surgery) Anesthesia Reaction: No Hx Neurological Disorder: Yes (dizziness, concussion x 5 ) Hx Respiratory Disorders: Yes (ASTHMA ) Hx Cardiac Disorders: Yes (HTN, HIGH CHOLESTEROL ) Hx Psychiatric Problems: No Hx Miscellaneous Medical Probl: Yes (LYMPHOMA ANXIETY, hypothyroidism) Hx Alcohol Use: No Hx Substance Use: No Hx Tobacco Use: No Smoking Status: Never smoker FmHx Family History: No coronary disease Physical Exam Vitals Vital Signs Date Time Temp Pulse Resp B/P Pulse Ox O2 Delivery O2 Flow Rate FiO2 05/23/17 20:44 98.3 16 171/93 99 Room Air 05/23/17 20:37 98.3 69 16 181/83 99 Physical Exam Const: Well-developed, well-nourished after carding the patient's blood pressure is 128/76. Discharged home the patient seen his primary care physician tomorrow Head: Atraumatic, normocephalic Eyes: Normal Conjunctiva, PERRLA, EOMI, normal sclera, no nystagmus ENT: Normal External Ears, Nose and Mouth, moist mucus membranes. Neck: Full range of motion. No meningismus, no lymphadenopathy. Resp: Clear to auscultation bilaterally, no wheezing, rhonchi, rales Cardio: Regular rate and rhythm, no murmurs, S1 S2 present Abd: Soft, non tender x 4, non distended. Normal bowel sounds, no guarding or rebound, no pulsitile abdominal masses or bruits Skin: No petechiae or rashes, no ecchymosis , no maculopapular rash Back: No midline or flank tenderness Ext: No cyanosis, or edema, FROM x 4, normal inspection, neurovascularly intact x 4 Neur: Awake and alert, STR 5/5 x 4, sensation intact x 4, no focal findings, cerebellum intact Psych: Normal Mood and Affect Results 24 hrs Current Medications Medications (Trade) Dose Ordered Sig/Belle Route PRN Reason Start Time Stop Time Status Last Admin Dose Admin Nicardipine HCl (Cardene) 30 mg ONCE ONCE PO 05/23/17 21:00 05/23/17 21:01 DC 05/23/17 21:08 Procedures/MDM Patient's blood pressure was lowered after Cardene p.o. to 128/76 for discharge home. The patient will see his primary care physician tomorrow Departure Diagnosis: Primary Impression: Hypertension Hypertension type: essential hypertension Qualified Code: I10 - Essential hypertension Condition: Stable Patient Instructions: High Blood Pressure (Hypertension) Referrals: YARIEL LUNA MD (PCP) FUNMILAYO FIGUEROA DO May 23, 2017 22:55
[2017-05-23 22:58] VITALS: BP 128/53; RESP 16; TEMP 98.3
== END 2017-05-23 22:53 | disposition home or self-care (01) ==
LOC: E/R 20:33
DX: I10 Essential (primary) hypertension (principal); J45.909 Unspecified asthma, uncomplicated; E03.9 Hypothyroidism, unspecified; Z79.82 Long term (current) use of aspirin
CPT/HCPCS: 99283

== ENCOUNTER 2017-06-15 19:35 | Emergency (ER) | payer MEDICARE, OTHER | END 2017-06-15 20:25 | disposition left against medical advice (07) | LOC: E/R 19:35 | DX: Z53.21 Procedure and treatment not carried out due to patient leaving prior to being seen by health care provider (principal) ==

== ENCOUNTER 2017-06-19 21:00 | Emergency (ER) | payer MEDICARE, OTHER ==
[~2017-06-19] VITALS: Ht 170.2 cm; Wt 79.5 kg
[2017-06-19 21:00] VITALS: Ht 170.2 cm; Wt 79.5 kg
[2017-06-19] MEDS ORDERED: KETOROLAC 30 MG INJ IM STA (22:03)
[2017-06-19] MEDS ORDERED: NAPR-688 PO (22:10)
[2017-06-19 22:18] VITALS: BP 140/78; PULSE 78; RESP 18
--- NOTE | 2017-06-19 22:18 | ERD ---
ER Documentation Chief Complaint Date/Time DATE: 06/19/17 TIME: 22:15 Chief Complaint Lateral foot pain with walking. HPI This 81-year-old male presents with with bilateral foot pain for the last few days. It hurts worse when he walks on it. Most of the pain is along the bottom of the foot but he also has pain on his dorsal foot as well. He suffered no trauma to either foot. He has no other complaints. ROS All systems reviewed and are negative except as per history of present illness. Medications Home Meds Active Scripts Naproxen* (Naproxen*) 500 Mg Tablet, 500 MG PO BID Y for PAIN, #20 TAB Prov:TIERA ALFARO DO 06/19/17 Reported Medications Ranitidine Hcl* (Ranitidine Hcl*) 75 Mg Tablet, 75 MG PO BID Y for HEARTBURN, # 60 TAB 01/22/17 Omeprazole* (Omeprazole*) 20 Mg Capsule.dr, 20 MG PO DAILY, #30 CAP 11/28/16 Docusate Sodium* (Docusate Sodium*) 100 Mg Capsule, 200 MG PO DAILY, #30 CAP 11/28/16 Alprazolam* (Xanax*) 0.5 Mg Tab, 0.5 MG PO TID Y for ANXIETY, TAB 08/11/16 Amlodipine Besylate* (Norvasc*) 5 Mg Tablet, 5 MG PO BID, TAB 03/05/16 Aspirin* (Aspirin* EC) 81 Mg Tablet.dr, 81 MG PO DAILY, TAB 03/05/16 Losartan Potassium* (Losartan Potassium*) 100 Mg Tablet, 100 MG PO DAILY, TAB 09/12/15 Levothyroxine Sodium* (Levothyroxine Sodium*) 88 Mcg Tablet, 88 MCG PO AC BREAKFAST, TAB 05/02/15 Allergies Allergies: Coded Allergies: No Known Allergies (Unverified Allergy, Mild, 02/26/17) PMhx/Soc History of Surgery: Yes (multiple stents placed, thyroidectomy, spinal surgery) Anesthesia Reaction: No Hx Neurological Disorder: Yes (dizziness, concussion x 5 ) Hx Respiratory Disorders: Yes (ASTHMA ) Hx Cardiac Disorders: Yes (HTN, HIGH CHOLESTEROL ) Hx Psychiatric Problems: No Hx Miscellaneous Medical Probl: Yes (LYMPHOMA ANXIETY, hypothyroidism) Hx Alcohol Use: No Hx Substance Use: No Hx Tobacco Use: No Physical Exam Vitals Vital Signs Date Time Temp Pulse Resp B/P Pulse Ox O2 Delivery O2 Flow Rate FiO2 06/19/17 21:00 97.9 67 17 149/75 98 Physical Exam Const: [] No distress Head: Atraumatic Eyes: Normal Conjunctiva Skin: No petechiae or rashes Ext: No cyanosis, or edema, bilateral feet with normal appearance and no deformities. Tenderness along the plantar portion of the foot from just behind the phalanges all the way along the plantar fascia to the anterior calcaneus. Distal pulses intact with good capillary refill. No signs of infection. Results 24 hrs Current Medications Medications (Trade) Dose Ordered Sig/Belle Route PRN Reason Start Time Stop Time Status Last Admin Dose Admin Ketorolac Tromethamine (Toradol) 30 mg ONCE STAT IM 06/19/17 22:03 06/19/17 22:04 DC Acetaminophen/ Hydrocodone Bitart (Narka (5/325)) 1 tab ONCE ONCE PO 06/19/17 22:30 06/19/17 22:31 Procedures/MDM Bilateral foot pain likely secondary to plantar fasciitis. I see no need for imaging is unlikely the patient has bilateral simultaneous foot fractures without trauma. An injection of Toradol IM 30 mg as well as and Narka. We will discharge her with naproxen and instruction follow-up his primary care doctor in a few days. Departure Diagnosis: Primary Impression: Bilateral plantar fasciitis Additional Impression: Bilateral foot pain Condition: Stable Patient Instructions: Treating Plantar Fasciitis Additional Instructions: Call your primary care doctor TOMORROW for an appointment during the next 2-3 days.See the doctor sooner or return here if your condition worsens before your appointment time. TIERA ALFARO DO Jun 19, 2017 22:18
[2017-06-19] MEDS ORDERED: HYDROCODONE/APAP (5/325) TAB PO ONE (22:30)
== END 2017-06-19 22:40 | disposition home or self-care (01) ==
LOC: E/R 21:00
DX: M72.2 Plantar fascial fibromatosis (principal); J45.909 Unspecified asthma, uncomplicated; I10 Essential (primary) hypertension; E03.9 Hypothyroidism, unspecified; R40.2142 Coma scale, eyes open, spontaneous, at arrival to emergency department; R40.2252 Coma scale, best verbal response, oriented, at arrival to emergency department; R40.2362 Coma scale, best motor response, obeys commands, at arrival to emergency department; Z79.82 Long term (current) use of aspirin
CPT/HCPCS: 99283; J1885

== ENCOUNTER 2017-07-03 17:03 | Emergency (ER) | payer MEDICARE, OTHER ==
[~2017-07-03] VITALS: Ht 172.7 cm; Wt 77.0 kg
[~2017-07-03 17:03] MED LIST changes: +NAPR-688 PO
[2017-07-03 17:15] VITALS: Ht 172.7 cm; Wt 77.0 kg
--- NOTE | 2017-07-03 19:14 | ERD ---
ER Documentation Chief Complaint Chief Complaint DIZZINESS , BP HIGH AT HOME 197/88 , DENIES CP , NO SOB HPI This is a 81-year-old male with multiple visits to the emergency room for elevated blood pressure. Today he states that he forgot to take his amlodipine and noted to have blood pressure in the 190s at home. He is not that elevated upon arrival. He describes a mild lightheadedness but denies any headache vision changes chest pain or shortness of breath. The patient states that the reason he came to the emergency room is because his blood pressure was elevated he wants permission to take amlodipine. He denies any symptoms currently. ROS All systems reviewed and are negative except as per history of present illness. Medications Home Meds Active Scripts Naproxen* (Naproxen*) 500 Mg Tablet, 500 MG PO BID Y for PAIN, #20 TAB Prov:DOMINICTIERAALEKSANDRA KERR 06/19/17 Reported Medications Ranitidine Hcl* (Ranitidine Hcl*) 75 Mg Tablet, 75 MG PO BID Y for HEARTBURN, # 60 TAB 01/22/17 Omeprazole* (Omeprazole*) 20 Mg Capsule.dr, 20 MG PO DAILY, #30 CAP 11/28/16 Docusate Sodium* (Docusate Sodium*) 100 Mg Capsule, 200 MG PO DAILY, #30 CAP 11/28/16 Alprazolam* (Xanax*) 0.5 Mg Tab, 0.5 MG PO TID Y for ANXIETY, TAB 08/11/16 Amlodipine Besylate* (Norvasc*) 5 Mg Tablet, 5 MG PO BID, TAB 03/05/16 Aspirin* (Aspirin* EC) 81 Mg Tablet.dr, 81 MG PO DAILY, TAB 03/05/16 Losartan Potassium* (Losartan Potassium*) 100 Mg Tablet, 100 MG PO DAILY, TAB 09/12/15 Levothyroxine Sodium* (Levothyroxine Sodium*) 88 Mcg Tablet, 88 MCG PO AC BREAKFAST, TAB 05/02/15 Allergies Allergies: Coded Allergies: No Known Allergies (Unverified Allergy, Mild, 02/26/17) PMhx/Soc History of Surgery: Yes (multiple stents placed, thyroidectomy, spinal surgery) Anesthesia Reaction: No Hx Neurological Disorder: Yes (dizziness, concussion x 5 ) Hx Respiratory Disorders: Yes (ASTHMA ) Hx Cardiac Disorders: Yes (HTN, HIGH CHOLESTEROL ) Hx Psychiatric Problems: No Hx Miscellaneous Medical Probl: Yes (LYMPHOMA ANXIETY, hypothyroidism) Hx Alcohol Use: No Hx Substance Use: No Hx Tobacco Use: No FmHx Family History: No diabetes Physical Exam Vitals Vital Signs Date Time Temp Pulse Resp B/P Pulse Ox O2 Delivery O2 Flow Rate FiO2 07/03/17 17:15 98.2 79 18 162/74 99 Physical Exam General: Well developed, well nourished, no acute distress Head: Normocephalic, atraumatic. Eyes: Pupils equally reactive, EOM intact ENT: Moist mucous membranes Neck: Supple, no lymphadenopathy Respiratory: Lungs clear bilaterally, no distress Cardiovascular: RRR, no murmurs, rubs, or gallops Abdominal: Soft, non-tender, non-distended, no peritoneal signs : Deferred MSK: No edema, no unilateral swelling, 5/5 strength Neurologic: Alert and oriented, moving all extremities, normal speech, no focal weakness, no cerebellar signs Skin: No rash Psych: Anxious mood Procedures/MDM The patient presents with elevated blood pressure without clinical signs or symptoms concerning for endorgan dysfunction. The patient has a nonfocal neurologic exam. His blood pressure is trending down. I seen the patient multiple times for the similar symptoms. Anxiety is playing a strong role in the patient's symptoms. He lives at home with his family member and who assists giving him his medications. The patient is well kept. I do believe that social scientist involvement would be appropriate at this time given his multiple visits for nonspecific and emergent blood pressure issues. However, I do not believe that APS is necessary. The patient appears to be well kept and caring for activities of daily living. His main concern is that he needs permission to take his regular amlodipine. I have given him verbal permission to take his home medications as he should be taking on a regular basis. The patient does not require IV medications or diagnostic imaging such as EKG or CT brain given no evidence of endorgan dysfunction. He was provided with reassurance and will be discharged. We discussed follow up with the patient's primary care doctor within 24 to 48 hours as needed. We also discussed return to the emergency room for worsening symptoms or worsening condition. Outpatient referral: [None required] exhaust worker has been paged to follow-up with the patient and family on a nonemergent basis. Departure Diagnosis: Primary Impression: Asymptomatic hypertension Condition: Stable Patient Instructions: High Blood Pressure (Hypertension) Additional Instructions: Call your primary care doctor TOMORROW for an appointment during the next 1 WEEK.Tell the legal secretary receptionist that you were referred from this facility.See the doctor sooner or return here if your condition worsens before your appointment time. NHAN HE MD Jul 03, 2017 19:14
[2017-07-03 19:45] VITALS: BP 138/71; PULSE 84; RESP 18; TEMP 98.4
== END 2017-07-03 19:50 | disposition home or self-care (01) ==
LOC: E/R 17:03
DX: I10 Essential (primary) hypertension (principal); J45.909 Unspecified asthma, uncomplicated; E03.9 Hypothyroidism, unspecified; Z79.82 Long term (current) use of aspirin; Z98.61 Coronary angioplasty status
CPT/HCPCS: 99282

== ENCOUNTER 2017-09-24 11:19 | Emergency (ER) | END 2017-09-24 14:28 | disposition home or self-care (01) ==

== ENCOUNTER → 2017-10-22 | Outpatient (CLI) | END | disposition home or self-care (01) ==

== ENCOUNTER 2018-01-02 16:47 | Emergency (ER) | END 2018-01-02 19:18 | disposition home or self-care (01) ==

== ENCOUNTER 2018-03-05 23:46 | Emergency (ER) | END 2018-03-06 01:15 | disposition home or self-care (01) ==

== ENCOUNTER 2018-03-28 00:07 | Emergency (ER) | END 2018-03-28 04:47 | disposition home or self-care (01) ==